=== PATIENT | female | born 1985 | race Caucasian/White ===

== ENCOUNTER 2019-12-23 08:37 | Day surgery (SDC) | payer OTHER ==
[~2019-12-23 08:37] MED LIST: DIPRIVAN 200 MG/20 ML IV ONE; Ketamine HCl 50 MG/ML ONE; Lactated Ringers 1,000 ML IV ONE; Lactated Ringers 1,000 ML IV SCH
--- NOTE | 2019-12-23 09:21 | HP ---
DATE OF SURGERY: 12/23/2019 HISTORY OF PRESENT ILLNESS: The patient is a 34 year-old with some intermittent epigastric and some right upper quadrant pain. She had a gallbladder ultrasound that did not show any stones, had a HIDA ejection fraction 95%. PAST MEDICAL HISTORY: Hypothyroidism, diabetes, anxiety. PAST SURGICAL HISTORY: Cyst removed from her back in the past. MEDICATIONS: Levothyroxine for hypothyroidism. Metformin for diabetes. Pantoprazole. Paxil for anxiety. Ranitidine. ALLERGIES: OMEPRAZOLE. SHE TOLERATES PANTOPRAZOLE. FAMILY HISTORY: Breast cancer. Asthma. SOCIAL HISTORY: Half pack per day smoker. Denies alcohol abuse. REVIEW OF SYSTEMS: Fourteen systems reviewed. No chest pain or palpitations. Other systems negative or noncontributory as above and per preadmission questionnaire. PHYSICAL EXAMINATION: GENERAL: No acute distress. HEENT: Sclerae nonicteric. NECK: No JVD. CHEST: Equal excursion, nonlabored breathing. CVS: Regular rate and rhythm. ABDOMEN: Soft. She is quite obese. Mild tenderness epigastrium and right upper quadrant. No peritoneal signs. EXTREMITIES: No significant edema. NEURO: Alert, oriented, moving extremities symmetrically. No gross motor deficits noted. IMPRESSION: Intermittent right upper quadrant and epigastric area pain of unclear etiology. She had an ultrasound showed no stones. HIDA ejection fraction is above the normal range at 95%. I feel she needs upper endoscopy to rule out gastritis, peptic ulcer disease, esophagitis or other etiology. If that is negative, she may need opinion from gastroenterology for possible endoscopic ultrasound or get their opinion on whether she has some sort of hyperkinetic gallbladder dysfunction causing some of her symptoms. She agrees to the plan, will proceed with outpatient EGD, possible biopsy as an outpatient.
[2019-12-23] MEDS ORDERED: DIPRIVAN 200 MG/20 ML IV ONE (10:09)
[2019-12-23 11:04] VITALS: O2SAT 97
[2019-12-23 11:08] VITALS: BP 142/88; PULSE 68
--- NOTE | 2019-12-23 14:04 | OP ---
SURGERY DATE/TIME: 12/23/2019 1005 PREOPERATIVE DIAGNOSES: 1) History of right upper quadrant epigastric pain. 2) Negative gallbladder ultrasound. HIDA scan ejection fraction 95%. POSTOPERATIVE DIAGNOSIS: Mild gastritis. PROCEDURES: 1) EGD with cold biopsy of small bowel to evaluate for celiac sprue. 2) Cold biopsy of antrum to evaluate for Helicobacter pylori. 3) Cold biopsy of distal esophagus to evaluate for short segment distal gastroesophagitis versus normal variation of gastroesophageal junction. 4) Random cold biopsy of mid esophagus to evaluate for eosinophilic esophagitis. SURGEON: Dr. Tanner Lomeli. ANESTHESIA: MAC. ESTIMATED BLOOD LOSS: Minimal. INDICATIONS: As noted above. Risks and benefits explained in detail and not limited to and consent obtained. DESCRIPTION OF PROCEDURE AND FINDINGS: The patient is taken to the endoscopy room. MAC anesthesia introduced. After official time out and no disagreement with planned procedure, video gastroscope easily passed down the esophagus through the patent pylorus to the junction of the second and third portion of the duodenum. Given her symptom complaints and negative gallbladder ultrasound, cold biopsy taken in the small bowel to evaluate for celiac sprue. Good hemostasis noted. Scope pulled back into the stomach. There was some mild gastritis. Cold biopsy taken to evaluate for Helicobacter pylori. There are no signs of any ulcers, polyps, masses or obstructing lesions. On retroflex the gastroesophageal junction snug against the scope. No signs of any significant hiatal hernia. The scope is straightened and pulled back to gastroesophageal junction about 40 cm. There was just slightly corrugated edge of the gastroesophageal junction whether this is just normal variation or early distal gastroesophagitis cold biopsy taken to evaluate for short segment distal gastroesophagitis. Good hemostasis noted. The scope pulled back in mid esophagus and some random cold biopsies taken to evaluate for eosinophilic esophagitis to rule out other cause of her symptoms. Otherwise no signs of any other mucosal lesions. Scope withdrawn. The patient tolerated the procedure well. There were no immediate complications. There was no family available to discuss the findings with out in the waiting area.
== END 2019-12-23 11:35 | disposition home or self-care (01) ==
LOC: SDC 08:37
PROVIDERS: ATTEND Surgery
DX: K29.70 Gastritis, unspecified, without bleeding (principal); E11.9 Type 2 diabetes mellitus without complications; E03.9 Hypothyroidism, unspecified; Z79.899 Other long term (current) drug therapy
CPT/HCPCS: 84703; 88305; J2704

== ENCOUNTER 2020-03-22 17:04 | Emergency (ER) | payer OTHER ==
[2020-03-22] MEDS ORDERED: TORAdol 30 mg Injection IM ONE (17:48)
[2020-03-22] MEDS ORDERED: CLEOCIN 150 MG CAPSULE PO ONE (17:49)
[2020-03-22 17:53] VITALS: PULSE 72
[2020-03-22] MEDS ORDERED: TORAdol 30 mg Injection ONE (17:55)
[2020-03-22] MEDS ORDERED: CLEOCIN 150 MG CAPSULE ONE (17:55)
--- NOTE | 2020-03-22 17:55 | ERPHSYRPT ---
- History of Present Illness Time Seen by Provider: 03/22/20 17:40 Source: patient Exam Limitations: no limitations Physician History: 34 years old female with history of anxiety, depression presented in the ER with chief complaint of left upper jaw/tooth ache/swelling sudden onset last night associated with moderate intensity sharp pain more with movements of the jaw, hot and cold intake and partial relief with taking [id number] pain medications. Denies any difficulty breathing. No earache. No fever or chills reported. Timing/Duration: abrupt onset, yesterday Severity: moderate ENT Location: mouth, dental Prearrival Treatment: no prearrival treatment Associated Symptoms: tooth pain, No fever, No chills, No hearing loss Allergies/Adverse Reactions: omeprazole Adverse Reaction (Intermediate, Verified 12/23/19 08:54) Muscle Aches "makes my body shake" Home Medications: Clomiphene Citrate [Serophene] 50 mg PO DAILY 12/13/19 [History] Famotidine [Pepcid] 40 mg PO HS 12/13/19 [History] Levothyroxine Sodium 100 Mcg [Synthroid 100 Mcg] 100 mcg PO DAILY 12/13/19 [History] Metformin HCl 500 mg [Glucophage 500 MG] 500 mg PO HS 12/13/19 [History] PARoxetine HCL [Paroxetine HCl] 10 mg PO DAILY 12/13/19 [History] Trazodone HCl 50 mg [Desyrel 50 mg] 50 mg PO HS 12/13/19 [History] - Review of Systems Constitutional: No Symptoms Eyes: No Symptoms Ears, Nose, & Throat: Mouth Swelling Respiratory: No Symptoms Cardiac: No Symptoms Abdominal/Gastrointestinal: No Symptoms Psychological: Anxiety, Depression Endocrine: No Symptoms Hematologic/Lymphatic: No Symptoms - Past Medical History Pertinent Past Medical History: Yes Neurological History: Other ENT History: No Pertinent History Cardiac History: No Pertinent History Respiratory History: Asthma Endocrine Medical History: No Pertinent History Musculoskeletal History: No Pertinent History GI Medical History: No Pertinent History History: No Pertinent History Psycho-Social History: Anxiety, Depression, Other Female Reproductive Disorders: No Pertinent History Other Medical History: personality disorder - Past Surgical History Past Surgical History: Yes Neuro Surgical History: No Pertinent History Cardiac: No Pertinent History Respiratory: No Pertinent History Gastrointestinal: No Pertinent History Genitourinary: No Pertinent History Musculoskeletal: Other Female Surgical History: No Pertinent History Other Surgical History: cyst removed from between shoulder blades - Social History Smoking Status: Current every day smoker Exposure to second hand smoke: No Drug Use: none - Physical Exam General Appearance: no apparent distress, alert Eye Exam: bilateral eye: normal inspection, PERRL, EOMI Ear Exam: bilateral ear: auricle normal, canal normal, TM normal Nasal Exam: normal inspection Throat Exam: normal, pharynx normal, dental tenderness (Gingiva around left upper premolar and molar. No fluctuation. 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 I believe patient is developing dental abscess but no fluctuation at present that needs to be drained , will treat with antibiotics. Recommended outpatient follow-up with dentist. Counseled pt/family regarding: need for follow-up - Departure Departure Disposition: Home Clinical Impression: Dental abscess Condition: Stable Critical Care Time: No Referrals: PRINCESS MAZARIEGOS MD [Primary Care Provider] - Follow Up with PCP/3 days FAM ORTIZ DDS [NON-STAFF PHY W/O PRIVILEGES] - (1-2 days for reevaluation. ) Instructions: Tooth Abscess (DC) Additional Instructions: Follow-up with dentist for reevaluation. Take Tylenol/ibuprofen as needed. Return to ER for any worsening. Prescriptions: Ibuprofen 600 mg PO Q6HPRN PRN 10 Days #20 tablet PRN Reason: Pain Clindamycin HCl 150 mg [Cleocin 150 mg Capsule] 2 cap PO QID #56 capsule
[2020-03-22 18:20] VITALS: BP 138/92; O2SAT 96
== END 2020-03-22 18:20 ==
LOC: ED 17:04
DX: K04.7 Periapical abscess without sinus (principal)
CPT/HCPCS: 96372; 99283; J1885; A9270-GY

== ENCOUNTER 2020-06-06 18:26 | Emergency (ER) | payer OTHER ==
[2020-06-06] MEDS ORDERED: Augmentin 875-125 Tablet PO ONE (18:46)
[2020-06-06] MEDS ORDERED: MOTRIN 600 MG PO ONE (18:46)
--- NOTE | 2020-06-06 18:50 | ERPHSYRPT ---
- History of Present Illness Time Seen by Provider: 06/06/20 18:40 Source: patient Exam Limitations: no limitations Patient Subjective Stated Complaint: pt reports pain under her right jaw, starting at her ear and radiating around to her chin-begining this morning. pt reports broken molars on the lower right side as well. pt states it hurts to move her neck. Triage Nursing Assessment: pt is aox3, pupils perrl, afebrile, resps easy and non labored, cap refill < 3 seconds, radial pulses strong and equal, pt skin pink warm dry. dental carries noted throughout. tenderness under the right ear and along jaw line, no redness or swelling noted at this time. Physician History: 34 years old female presented in the ER with chief complaint of right lower jaw pain and swelling of right upper neck nodes since yesterday after she broke a piece of her molar tooth. Moderate to severe intensity sharp pain aggravated with movements of jaw, swallowing and associated with hot and cold sensitivities. Has history of dental caries and work-up done in the past. Denies fever or chills. Timing/Duration: yesterday Severity: moderate ENT Location: facial, dental Prearrival Treatment: no prearrival treatment Associated Symptoms: facial pain/swelling, swollen glands, tooth pain, No fever, No chills Allergies/Adverse Reactions: omeprazole Adverse Reaction (Intermediate, Verified 03/22/20 17:54) Muscle Aches "makes my body shake" Home Medications: Clomiphene Citrate [Serophene] 50 mg PO DAILY 12/13/19 [History] Famotidine [Pepcid] 40 mg PO HS 12/13/19 [History] Levothyroxine Sodium 100 Mcg [Synthroid 100 Mcg] 100 mcg PO DAILY 12/13/19 [History] Metformin HCl 500 mg [Glucophage 500 MG] 500 mg PO HS 12/13/19 [History] PARoxetine HCL [Paroxetine HCl] 10 mg PO DAILY 12/13/19 [History] Trazodone HCl 50 mg [Desyrel 50 mg] 50 mg PO HS 12/13/19 [History] Hx Tetanus, Diphtheria Vaccination/Date Given: Yes Hx Influenza Vaccination/Date Given: No Hx Pneumococcal Vaccination/Date Given: No Immunizations Up to Date: Yes Travel Risk - International Travel Have you traveled outside of the country in past 3 weeks: No - Coronavirus Screening Are you exhibiting any of the following symptoms?: No Close contact with a COVID-19 positive Pt in past 14-21 Days: No - Review of Systems Constitutional: No Symptoms Eyes: No Symptoms Ears, Nose, & Throat: Mouth Swelling Respiratory: No Symptoms Cardiac: No Symptoms Abdominal/Gastrointestinal: No Symptoms Genitourinary Symptoms: No Symptoms Musculoskeletal: No Symptoms Skin: No Symptoms Neurological: No Symptoms Endocrine: No Symptoms Hematologic/Lymphatic: Adenopathy Immunological/Allergic: No Symptoms - Past Medical History Pertinent Past Medical History: Yes Neurological History: Other ENT History: No Pertinent History Cardiac History: No Pertinent History Respiratory History: Asthma Endocrine Medical History: No Pertinent History Musculoskeletal History: No Pertinent History GI Medical History: No Pertinent History History: No Pertinent History Psycho-Social History: Anxiety, Depression, Other Female Reproductive Disorders: No Pertinent History Other Medical History: personality disorder - Past Surgical History Past Surgical History: Yes Neuro Surgical History: No Pertinent History Cardiac: No Pertinent History Respiratory: No Pertinent History Gastrointestinal: No Pertinent History Genitourinary: No Pertinent History Musculoskeletal: Other Female Surgical History: No Pertinent History Other Surgical History: cyst removed from between shoulder blades - Social History Smoking Status: Current every day smoker Exposure to second hand smoke: No Drug Use: none Patient Lives Alone: No - Female History Hx Last Menstrual Period: 05/04/20 Hx Now: (unk) - Nursing Vital Signs Nursing Vital Signs: Initial Vital Signs Temperature 99.2 F 06/06/20 18:31 Pulse Rate 81 06/06/20 18:31 Respiratory Rate 20 06/06/20 18:31 Blood Pressure 166/104 06/06/20 18:31 O2 Sat by Pulse Oximetry 98 06/06/20 18:31 Pain Scale Pain Intensity 5 - Physical Exam General Appearance: no apparent distress, alert, anxiety Eye Exam: bilateral eye: normal inspection, PERRL, EOMI Ear Exam: bilateral ear: auricle normal Nasal Exam: normal inspection Throat Exam: normal, pharynx normal, dental tenderness (Right lower molar with fillings, periodontal disease), mandibular swelling Neck Exam: normal inspection, non-tender, supple, full range of motion, lymphadenopathy (R) Cardiovascular/Respiratory Exam: normal breath sounds, regular rate/rhythm Neurologic Exam: alert, oriented x 3 Skin Exam: normal color SpO2 Interpretation: normal SpO2: 98 O2 Delivery: Room Air Ordered Tests: Medication Summary Discontinued Medications Generic Name Dose Route Start Last Admin Trade Name Nancy PRN Reason Stop Dose Admin Amoxicillin/Clavulanate Potassium 875 mg 06/06/20 18:46 06/06/20 18:57 Augmentin 875-125 Tablet PO 06/06/20 18:47 875 mg STAT ONE Administration Amoxicillin/Clavulanate Potassium Confirm 06/06/20 18:55 Augmentin 875-125 Tablet Administered 06/06/20 18:56 Dose 875 mg .ROUTE .STK-MED ONE Ibuprofen 600 mg 06/06/20 18:46 06/06/20 18:56 Motrin 600 Mg PO 06/06/20 18:47 600 mg STAT ONE Administration Ibuprofen Confirm 06/06/20 18:55 Motrin 600 Mg Administered 06/06/20 18:56 Dose 600 mg .ROUTE .STK-MED ONE - Progress Progress: pain not gone completely Progress Note: 06/06/20 she is given ibuprofen and started on Augmentin, recommended outpatient dental follow-up. Counseled pt/family regarding: diagnosis, need for follow-up - Departure Departure Disposition: Home Clinical Impression: Dental infection Condition: Stable Critical Care Time: No Referrals: PRINCESS MAZARIEGOS MD [Primary Care Provider] - Follow Up with PCP/3 days FAM ORTIZ DDS [NON-STAFF PHY W/O PRIVILEGES] - (2 days for re evaluation) Instructions: Tooth Abscess (DC) Additional Instructions: Take Tylenol/ibuprofen as needed. Follow-up with your primary dentist/primary care for reevaluation. Return to ER for worsening. Prescriptions: Ibuprofen 600 mg PO Q6HPRN PRN 10 Days #20 tablet PRN Reason: Pain Amoxicillin/Potassium Clav [Augmentin 875-125 Tablet] 875 mg PO BID #14 tablet
[2020-06-06] MEDS ORDERED: Augmentin 875-125 Tablet ONE (18:55)
[2020-06-06] MEDS ORDERED: MOTRIN 600 MG ONE (18:55)
[2020-06-06 19:09] VITALS: BP 161/104; PULSE 65
[2020-06-06 23:38] VITALS: O2SAT 98
== END 2020-06-06 19:15 | disposition home or self-care (01) ==
LOC: ED 18:26
DX: K04.7 Periapical abscess without sinus (principal)
CPT/HCPCS: 99283; A9270-GY

== ENCOUNTER 2020-07-20 19:43 | Emergency (ER) | payer OTHER ==
--- NOTE | 2020-07-20 21:26 | ERPHSYRPT ---
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 Pain is now 0, but worse w movement. She is R handed and denies previous/other injuries. Occurred: yesterday Method of Injury: fell Quality: other (No pain at present) Severity of Pain-Max: mild Severity of Pain-Current: none Extremities Pain Location: wrist: right Modifying Factors: Improves With: movement Associated Symptoms: none Allergies/Adverse Reactions: omeprazole Adverse Reaction (Intermediate, Verified 07/20/20 20:18) Muscle Aches "makes my body shake" Home Medications: Clomiphene Citrate [Serophene] 50 mg PO DAILY 12/13/19 [History] Famotidine [Pepcid] 40 mg PO HS 12/13/19 [History] Levothyroxine Sodium 100 Mcg [Synthroid 100 Mcg] 100 mcg PO DAILY 12/13/19 [History] Metformin HCl 500 mg [Glucophage 500 MG] 500 mg PO HS 12/13/19 [History] PARoxetine HCL [Paroxetine HCl] 10 mg PO DAILY 12/13/19 [History] Trazodone HCl 50 mg [Desyrel 50 mg] 50 mg PO HS 12/13/19 [History] Hx Tetanus, Diphtheria Vaccination/Date Given: No (unknown) Hx Influenza Vaccination/Date Given: No Hx Pneumococcal Vaccination/Date Given: No Travel Risk - International Travel Have you traveled outside of the country in past 3 weeks: No - Coronavirus Screening Are you exhibiting any of the following symptoms?: No Close contact with a COVID-19 positive Pt in past 14-21 Days: No - Review of Systems Constitutional: No Symptoms Eyes: No Symptoms Ears, Nose, & Throat: No Symptoms Respiratory: No Symptoms Cardiac: No Symptoms Abdominal/Gastrointestinal: No Symptoms Skin: No Symptoms Neurological: No Symptoms Psychological: No Symptoms Endocrine: No Symptoms Hematologic/Lymphatic: No Symptoms Immunological/Allergic: No Symptoms - Past Medical History Pertinent Past Medical History: Yes Neurological History: No Pertinent History ENT History: No Pertinent History Cardiac History: No Pertinent History Respiratory History: Asthma Endocrine Medical History: Hypothyroidism Musculoskeletal History: Osteoarthritis GI Medical History: No Pertinent History History: No Pertinent History Psycho-Social History: Anxiety, Depression, Other Female Reproductive Disorders: No Pertinent History Other Medical History: Pt notes problems with thyroid, unsure if hypo- or hyper- - Past Surgical History Past Surgical History: Yes Neuro Surgical History: No Pertinent History Cardiac: No Pertinent History Respiratory: No Pertinent History Gastrointestinal: No Pertinent History Genitourinary: No Pertinent History Musculoskeletal: Other Female Surgical History: No Pertinent History Other Surgical History: cyst removed from between shoulder blades - Social History Smoking Status: Current every day smoker Exposure to second hand smoke: No Drug Use: none Patient Lives Alone: No Significant Family History: no pertinent family hx - Female History Hx Now: No - Nursing Vital Signs Nursing Vital Signs: Initial Vital Signs Temperature 98.2 F 07/20/20 20:19 Pulse Rate 84 07/20/20 20:19 Respiratory Rate 16 07/20/20 20:19 Blood Pressure 156/100 07/20/20 20:19 O2 Sat by Pulse Oximetry 98 07/20/20 20:19 Pain Scale Pain Intensity 4 - Physical Exam General Appearance: no apparent distress Eyes, Ears, Nose, Throat Exam: normal ENT inspection, TMs normal, pharynx no rmal, moist mucous membranes Neck Exam: normal inspection, non-tender, No Brudzinski, No Kernig's, No meningismus Cardiovascular/Respiratory Exam: normal breath sounds, regular rate/rhythm, heart sounds normal, no respiratory distress Abdominal Exam: non-tender, soft Back Exam: normal inspection, normal range of motion, No vertebral tenderness Shoulder Exam: normal inspection, non-tender, no evidence of injury, normal ROM Elbow/Forearm Exam: normal inspection, non-tender, no evidence of injury, normal ROM Wrist Exam: bone tenderness (TTP distal R radius/Minimal edema/No ecchymosis/Good radial pulse, distal sensation, and capillary return) DTR - Upper Extremity Exam: bicep (R): 2+, bicep (L): 2+ Neuro/Tendon Exam: normal sensation, normal motor functions, normal tendon functions, responds to pain Mental Status Exam: alert, oriented x 3, cooperative Skin Exam: normal color, warm, dry SpO2 Interpretation: normal SpO2: 98 O2 Delivery: Room Air - Radiology Exams Wrist X-ray Interpretation: Interpreted by me (R wrist neg) Ordered Tests: Active Orders 24 hr Category Date Time Status Mitch Bandage Application -[facility] STAT Care 07/20/20 21:27 Completed Cold Application STAT Care 07/20/20 20:03 Completed HAND (MINIMUM 3 VIEWS) Stat Exams 07/20/20 20:04 Taken - Progress Progress: unchanged Progress Note: 07/20/20 21:28 Mitch wrap R wrist per nurse/NVI Counseled pt/family regarding: rad results - Departure Departure Disposition: Home Clinical Impression: Right wrist sprain Condition: Stable Critical Care Time: No Referrals: PRINCESS MAZARIEGOS MD [Primary Care Provider] - Instructions: Wrist Sprain (DC) Additional Instructions: Mitch wrap for 3-4 days Motrin/tylenol for pain Follow up with family MD for continued pain
[2020-07-20 21:41] VITALS: BP 145/99; PULSE 76
[2020-07-20 23:43] VITALS: O2SAT 98
--- NOTE | 2020-07-21 08:59 | XRAY ---
Indication: Pain following fall. Comparison: None 3 view right hand obtained. No bony, articular, or soft tissue abnormalities.
== END 2020-07-20 21:42 | disposition home or self-care (01) ==
LOC: ED 19:43
DX: S63.501A Unspecified sprain of right wrist, initial encounter (principal); W18.30XA Fall on same level, unspecified, initial encounter; Y93.89 Activity, other specified; Y92.89 Other specified places as the place of occurrence of the external cause; Y99.0 Civilian activity done for income or pay
CPT/HCPCS: 73130; 99283

== ENCOUNTER 2020-10-28 15:14 | Emergency (ER) | payer OTHER ==
[2020-10-28 15:25] VITALS: BP 141/95
[2020-10-28] MEDS ORDERED: SILVADENE 50 GM TP ONE (15:32)
[2020-10-28] MEDS: SILVADENE 50 GM TP ONE (15:35)
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
[2020-10-28] MEDS ORDERED: Adacel Vial IM ONE (15:46)
[2020-10-28] MEDS: Adacel Vial IM ONE (15:49)
[2020-10-28 15:57] VITALS: PULSE 100; O2SAT 97
== END 2020-10-28 16:05 | disposition home or self-care (01) ==
LOC: ED 15:14
DX: T23.151A Burn of first degree of right palm, initial encounter (principal); M79.641 Pain in right hand
CPT/HCPCS: 90471; 90715; 99283; A9270-GY

== ENCOUNTER 2021-03-29 16:45 | Emergency (ER) | payer OTHER ==
[2021-03-29 17:00] VITALS: BP 148/91; PULSE 89; O2SAT 98
--- NOTE | 2021-03-29 18:12 | ERPHSYRPT ---
- History of Present Illness Time Seen by Provider: 03/29/21 17:12 Source: patient Exam Limitations: no limitations Patient Subjective Stated Complaint: Patient states she has had R elbow pain for a few weeks but it has become increasingly worse over the last couple of days. States "she can barely lift a cup of coffee". Triage Nursing Assessment: Patient presents to ED with R elbow pain rates pain 5/10 at this time. Does not have any swelling around injured elbow, skin pink warm and dry, cap refill normal. Physician History: 35 years old morbidly obese female presented in the ER with 2 weeks history of right elbow pain with movements and better with being still, mild to moderate intensity dull aching without any known trauma. 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 Denies any weakness in the hand or difficulty movements of wrist shoulder patient is trying to get and wants the test before doing x-rays. Denies any vaginal bleeding or discharge. No abdominal/pelvic cramping. No urinary symptoms. Occurred: days ago (14) Method of Injury: unknown Quality: aching, dullness Severity of Pain-Max: moderate Severity of Pain-Current: moderate Extremities Pain Location: elbow: right Modifying Factors: Worsens With: movement Allergies/Adverse Reactions: omeprazole Adverse Reaction (Intermediate, Verified 03/29/21 17:03) Muscle Aches "makes my body shake" Home Medications: Famotidine [Pepcid] 40 mg PO HS 12/13/19 [History] Levothyroxine Sodium 100 Mcg [Synthroid 100 Mcg] 100 mcg PO DAILY 12/13/19 [History] Metformin HCl 500 mg [Glucophage 500 MG] 1,000 mg PO BID 12/13/19 [History] PARoxetine HCL [Paroxetine HCl] 10 mg PO DAILY 12/13/19 [History] Hx Tetanus, Diphtheria Vaccination/Date Given: Yes Hx Influenza Vaccination/Date Given: Yes Hx Pneumococcal Vaccination/Date Given: No Immunizations Up to Date: No (unknown) Travel Risk - International Travel Have you traveled outside of the country in past 3 weeks: No - Coronavirus Screening Are you exhibiting any of the following symptoms?: No Close contact with a COVID-19 positive Pt in past 14-21 Days: No - Vaccine Status Have you recieved a Covid-19 vaccination: Yes 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 - Vaccination Dates Date of 2cond Vaccination (if applicable): 02/24/21 - Review of Systems Constitutional: No Symptoms Eyes: No Symptoms Ears, Nose, & Throat: No Symptoms Respiratory: No Symptoms Cardiac: No Symptoms Abdominal/Gastrointestinal: No Symptoms Genitourinary Symptoms: No Symptoms Musculoskeletal: Joint Pain Skin: No Symptoms Neurological: No Symptoms Endocrine: No Symptoms Hematologic/Lymphatic: No Symptoms Immunological/Allergic: No Symptoms - Past Medical History Pertinent Past Medical History: Yes Neurological History: No Pertinent History ENT History: No Pertinent History Cardiac History: No Pertinent History Respiratory History: Asthma Endocrine Medical History: Hypothyroidism Musculoskeletal History: Osteoarthritis GI Medical History: No Pertinent History History: No Pertinent History Psycho-Social History: Anxiety, Depression, Other Female Reproductive Disorders: No Pertinent History Other Medical History: Pt notes problems with thyroid, unsure if hypo- or hyper- - Past Surgical History Past Surgical History: Yes Neuro Surgical History: No Pertinent History Cardiac: No Pertinent History Respiratory: No Pertinent History Gastrointestinal: No Pertinent History Genitourinary: No Pertinent History Musculoskeletal: Other Female Surgical History: No Pertinent History Other Surgical History: cyst removed from between shoulder blades - Social History Smoking Status: Current every day smoker How long have you smoked: years Exposure to second hand smoke: Yes Drug Use: none Patient Lives Alone: No Significant Family History: no pertinent family hx - Female History Hx Last Menstrual Period: 02/23/21 Hx Now: No - Nursing Vital Signs Nursing Vital Signs: Initial Vital Signs Temperature 98.7 F 03/29/21 16:50 Pulse Rate 89 03/29/21 16:50 Blood Pressure 148/91 03/29/21 16:50 O2 Sat by Pulse Oximetry 98 03/29/21 16:50 Pain Scale Pain Intensity 5 - Physical Exam General Appearance: no apparent distress, alert Eyes, Ears, Nose, Throat Exam: normal ENT inspection Neck Exam: normal inspection, supple, full range of motion Cardiovascular/Respiratory Exam: normal breath sounds, regular rate/rhythm Abdominal Exam: non-tender, soft, no organomegaly Shoulder Exam: normal inspection, non-tender, no evidence of injury, normal ROM Elbow/Forearm Exam: normal inspection, non-tender, no evidence of injury, normal ROM Wrist Exam: normal inspection, non-tender, no evidence of injury, normal ROM Hand Exam: normal inspection, non-tender Neuro/Tendon Exam: normal sensation, normal motor functions, normal tendon functions Mental Status Exam: alert, oriented x 3, cooperative Skin Exam: normal color SpO2 Interpretation: normal SpO2: 98 O2 Delivery: Room Air Ordered Tests: Active Orders 24 hr Category Date Time Status CULTURE,URINE Stat Lab 03/29/21 17:57 Received HCG,QUALITATIVE URINE Stat Lab 03/29/21 17:36 Completed UA W/RFX UR CULTURE Stat Lab 03/29/21 17:57 Completed Lab/Rad Data: Laboratory Results 03/29/21 03/29/21 Range/Units 17:57 17:36 Urine Color NEIL (YELLOW) Urine Appearance CLOUDY (CLEAR) Urine pH 5.0 (5-6) Ur Specific [place] 1.028 (1.005-1.025) Urine Protein NEGATIVE (Negative) Urine Ketones NEGATIVE (NEGATIVE) Urine Blood NEGATIVE (0-5) Salvador/ul Urine Nitrite NEGATIVE (NEGATIVE) Urine Bilirubin NEGATIVE (NEGATIVE) Urine Urobilinogen NEGATIVE (0-1) mg/dL Ur Leukocyte Esterase MODERATE (NEGATIVE) Urine WBC (Auto) 11-15 (0-5) /HPF Urine RBC (Auto) 3-5 (0-2) /HPF U Hyaline Cast (Auto) 0-2 (0-2) /LPF U Epithel Cells (Auto) FEW (FEW) /HPF Urine Bacteria (Auto) RARE (NEGATIVE) /HPF Urine Mucus (Auto) MODERATE (NEGATIVE) /HPF Urine Culture Reflexed YES (NO) Urine Glucose NEGATIVE (NEGATIVE) mg/dL Urine HCG, Qual POSITIVE (Negative) - Progress Progress: unchanged Progress Note: 03/29/21 18:10 She is offered pain medication which she refused as she is not in any pain currently. Obtained urine test which is positive and last LMP was little over a month ago. Does not have any pelvic cramping or vaginal bleeding/discharge. She refused to have x-rays even with shield placement. I think it is reasonable she is advised to take Tylenol as needed and have elbow brace [id number]. Went over her medications list and recommended stopping medications which are contraindicated in . We will start her on vitamins. Patient wants to follow-up with Dr. Suarez as an OB patient. 03/29/21 18:41 Does have UTI we will treat with Keflex. Counseled pt/family regarding: diagnosis, need for follow-up - Departure Departure Disposition: Home Clinical Impression: Elbow pain, right Qualifiers: Weeks of gestation: less than 8 weeks Qualified Code(s): Z3A.01 - Less than 8 weeks gestation of UTI in Qualifiers: Trimester: first trimester Qualified Code(s): O23.41 - Unspecified infection of urinary tract in , first trimester Condition: Stable Critical Care Time: No Referrals: MEEK THOMPSON [Primary Care Provider] - GOMEZ SUAREZ [ACTIVE STAFF] - (Call tomorrow for appointment) Instructions: Medications and Additional Instructions: Keep yourself well-hydrated. Take Tylenol as needed for pain. Continue with vitamins. Follow-up with your OB for reevaluation in the next few days. Use [id number] elbow brace. Return to ER for worsening pain or if have any abdominal/pelvic pain/vaginal bleeding discharge etc. Prescriptions: Cephalexin Mh 500 mg [Keflex 500 mg] 500 mg PO TID #21 capsule Vits W-Ca,Fe,FA(<1Mg) [] 1 each PO DAILY 60 Days #60 tablet
[2021-03-29 18:23] LABS: Appearance CLOUDY (CLEAR); Bacteria RARE /HPF (NEGATIVE); Bilirubin NEGATIVE (NEGATIVE); Blood NEGATIVE Ery/ul (0-5); Epithelial Cells FEW /HPF (FEW); Glucose NEGATIVE (NEGATIVE); Hyaline Casts 0-2 /LPF (0-2); Ketones NEGATIVE (NEGATIVE); Leukocyte Esterase MODERATE (NEGATIVE); Mucus MODERATE /HPF (NEGATIVE); Nitrite NEGATIVE (NEGATIVE); Protein,Urine Dip NEGATIVE (Negative); Specific Gravity 1.028 (1.005-1.025); Urobilinogen NEGATIVE mg/dL (0-1)
== END 2021-03-29 18:30 | disposition home or self-care (01) ==
LOC: ED 16:45
DX: O23.41 Unspecified infection of urinary tract in pregnancy, first trimester (principal); Z3A.01 Less than 8 weeks gestation of pregnancy
CPT/HCPCS: 81001; 84703; 87086; 99283

== ENCOUNTER 2021-09-27 19:54 | Observation (INO) | payer OTHER ==
[2021-09-27 20:42] VITALS: BP 134/68; PULSE 94
[2021-09-27 20:54] LABS: Appearance SLIGHTLY CLOUDY (CLEAR); Bacteria RARE /HPF (NEGATIVE); Bilirubin NEGATIVE (NEGATIVE); Blood NEGATIVE Ery/ul (0-5); Epithelial Cells FEW /HPF (FEW); Glucose NEGATIVE (NEGATIVE); Ketones NEGATIVE (NEGATIVE); Leukocyte Esterase MODERATE (NEGATIVE); Mucus SLIGHT /HPF (NEGATIVE); Nitrite NEGATIVE (NEGATIVE); Protein,Urine Dip NEGATIVE (Negative); Specific Gravity 1.011 (1.005-1.025); Urobilinogen NEGATIVE mg/dL (0-1)
[2021-09-27 20:57] LABS: Amphetamine,Urine NEGATIVE (NEGATIVE); Barbiturate,Urine NEGATIVE (NEGATIVE); Benzodiazepine,Urine NEGATIVE (NEGATIVE); Cocaine,Urine NEGATIVE (NEGATIVE); Methadone,Urine NEGATIVE (NEGATIVE); Opiate,Urine NEGATIVE (NEGATIVE); PCP,Urine NEGATIVE (NEGATIVE); THC,Urine NEGATIVE (NEGATIVE)
== END 2021-09-27 21:20 | disposition home or self-care (01) ==
LOC: OB 19:54
PROVIDERS: ADMIT Family Medicine; ATTEND Family Medicine
DX: Z34.83 Encounter for supervision of other normal pregnancy, third trimester (principal); Z3A.31 31 weeks gestation of pregnancy
CPT/HCPCS: 80307; 81001

== ENCOUNTER 2022-06-03 12:28 | Emergency (ER) | payer OTHER ==
--- NOTE | 2022-06-03 12:37 | ERPHSYRPT ---
- History of Present Illness Time Seen by Provider: 06/03/22 12:37 Source: patient, EMS Exam Limitations: no limitations Physician History: This is a morbidly obese 36-year-old white female who is a patient of Dr. Thompson and a daily smoker of cigarettes and presents to the emergency department via EMS because of "unresponsiveness". Patient had a very stressful morning with CPS at the home. Patient has hypothyroidism. She is only taking medication for asthma and seasonal allergies. Patient does have a history anxiety and depression. Patient denies chest pain and denies shortness of breath. Because the patient was not responsive at home, CPR was started. However, when EMS service arrived, the patient was breathing on her own and had a pulse and slowly began responding to sternal rub. By the time the patient arrived to the emergency department, patient is alert oriented and conversing. She denies chest pain. She denies shortness of breath. She has no abdominal pain. Per patient report, she has had several episodes of this type of thing since 2017. She has never obtained a diagnosis for these episodes. Timing/Duration: today Severity: moderate Associated Symptoms: denies symptoms Allergies/Adverse Reactions: omeprazole Adverse Reaction (Intermediate, Verified 06/03/22 13:06) Muscle Aches "makes my body shake" Home Medications: Fexofenadine HCl 180 mg PO DAILY 06/03/22 [History] Hx Tetanus, Diphtheria Vaccination/Date Given: Yes Hx Influenza Vaccination/Date Given: Yes Hx Pneumococcal Vaccination/Date Given: No Travel Risk - International Travel Have you traveled outside of the country in past 3 weeks: No - Coronavirus Screening Are you exhibiting any of the following symptoms?: No Close contact with a COVID-19 positive Pt in past 14-21 Days: No - Vaccine Status Have you recieved a Covid-19 vaccination: Yes Personal Injury Legal Assistant: Moderna - Vaccination Dates Date of 2cond Vaccination (if applicable): 02/11/21 Comment: moderna, and booster 08/13/21 Flu 07/2021 - Review of Systems Constitutional: No Symptoms Eyes: No Symptoms Ears, Nose, & Throat: No Symptoms Respiratory: No Symptoms Cardiac: No Symptoms Abdominal/Gastrointestinal: No Symptoms Genitourinary Symptoms: No Symptoms Musculoskeletal: No Symptoms Skin: No Symptoms Neurological: No Symptoms Psychological: No Symptoms Endocrine: No Symptoms Hematologic/Lymphatic: No Symptoms Immunological/Allergic: No Symptoms All Other Systems: Reviewed and Negative - Past Medical History Pertinent Past Medical History: Yes Neurological History: No Pertinent History ENT History: No Pertinent History Cardiac History: No Pertinent History Respiratory History: Asthma Endocrine Medical History: Hypothyroidism Musculoskeletal History: Osteoarthritis GI Medical History: No Pertinent History History: No Pertinent History Psycho-Social History: Anxiety, Depression, Other Female Reproductive Disorders: No Pertinent History Other Medical History: Pt notes problems with thyroid, unsure if hypo- or hyper- - Past Surgical History Past Surgical History: Yes Neuro Surgical History: No Pertinent History Cardiac: No Pertinent History Respiratory: No Pertinent History Gastrointestinal: No Pertinent History Genitourinary: No Pertinent History Musculoskeletal: Other Female Surgical History: No Pertinent History Other Surgical History: cyst removed from between shoulder blades - Social History Smoking Status: Current every day smoker How long have you smoked: years Exposure to second hand smoke: Yes Drug Use: none Patient Lives Alone: No Significant Family History: no pertinent family hx - Nursing Vital Signs Nursing Vital Signs: Initial Vital Signs Temperature 99.0 F 06/03/22 12:31 Pulse Rate 80 06/03/22 12:31 Respiratory Rate 14 06/03/22 12:31 Blood Pressure 147/89 06/03/22 12:31 O2 Sat by Pulse Oximetry 97 06/03/22 12:31 Pain Scale Pain Intensity 0 - Physical Exam General Appearance: no apparent distress, alert, anxiety, obese Eye Exam: PERRL/EOMI, eyes nml inspection Ears, Nose, Throat Exam: normal ENT inspection, moist mucous membranes Neck Exam: normal inspection, non-tender, supple, full range of motion Respiratory Exam: normal breath sounds, lungs clear, airway intact, No chest tenderness, No respiratory distress Cardiovascular Exam: regular rate/rhythm, normal heart sounds, normal peripheral pulses Gastrointestinal/Abdomen Exam: soft, normal bowel sounds, No tenderness Pelvic Exam: not done Rectal Exam: not done Back Exam: normal inspection, normal range of motion, No CVA tenderness, No vertebral tenderness Extremity Exam: normal inspection, normal range of motion, pelvis stable Neurologic Exam: alert, oriented x 3, cooperative, breastfeeding peer counselor II-XII nml as tested, normal mood/affect Skin Exam: normal color, warm, dry Lymphatic Exam: No adenopathy SpO2 Interpretation: normal O2 Delivery: Room Air - Course Nursing assessment & vital signs reviewed: Yes EKG Interpreted by Me: RATE (80), Sinus Rhythm, NORMAL AXIS, NORMAL INTERVALS, NORMAL QRS, NORMAL ST-T, Other (No acute ischemic changes on today's EKG) Ordered Tests: Active Orders 24 hr Category Date Time Status EKG-ER Only STAT Care 06/03/22 12:59 Active IV Insertion STAT Care 06/03/22 12:59 Active Pulse Oximetry (ED) STAT Care 06/03/22 12:59 Active HEAD WITHOUT CONTRAST [CT] Stat Exams 06/03/22 13:30 Completed CBC W DIFF Stat Lab 06/03/22 13:15 Completed CMP Stat Lab 06/03/22 13:15 Completed CULTURE,URINE Stat Lab 06/03/22 13:15 Received D-DIMER QUANTITATIVE Stat Lab 06/03/22 13:15 Completed HCG,QUALITATIVE URINE Stat Lab 06/03/22 13:15 Completed T4 (Thyroxine) Stat Lab 06/03/22 13:15 Completed TROPONIN Q4H Lab 06/03/22 13:15 Completed TROPONIN Q4H Lab 06/03/22 17:00 Ordered TROPONIN Q4H Lab 06/03/22 21:00 Ordered TSH, 3RD Generation Stat Lab 06/03/22 13:15 Completed UA W/RFX CULTURE Stat Lab 06/03/22 13:15 Completed Urine Triage Profile Stat Lab 06/03/22 13:15 Completed Medication Summary Generic Name Dose Route Start Last Admin Trade Name Freq PRN Reason Stop Dose Admin Ceftriaxone Sodium/Dextrose 1 g in 50 mls @ 100 mls/hr 06/03/22 14:30 Rocephin 1 Gm-D5w 50 Ml Bag IV 06/03/22 14:59 STAT STA Discontinued Medications Generic Name Dose Route Start Last Admin Trade Name Freq PRN Reason Stop Dose Admin Sodium Chloride 1,000 mls @ 999 mls/hr 06/03/22 12:59 06/03/22 13:40 Sodium Chloride 0.9% 1000 Ml IV 06/03/22 13:59 999 mls/hr .Q1H1M STA Administration Sodium Chloride Confirm 06/03/22 13:31 Sodium Chloride 0.9% 1000 Ml Administered 06/03/22 13:32 Dose 1,000 mls @ ud .ROUTE .STK-MED ONE Lab/Rad Data: Laboratory Result Diagrams 06/03/22 13:15 06/03/22 13:15 Laboratory Results 06/03/22 06/03/22 06/03/22 Range/Units 13:15 13:15 13:15 WBC (4.0-10.5) x10^3/uL RBC (4.1-5.4) x10^6/uL Hgb (12.0-16.0) g/dL Hct (35-47) % MCV (78-100) fL MCH (26-32) pg MCHC (32-36) g/dL RDW (11.5-14.0) % Plt Count (150-450) x10^3/uL MPV (7.5-11.0) fL Gran % (36.0-66.0) % Immature Gran % (Auto) (0.00-0.4) % Nucleat RBC Rel Count (0.00-0.1) % Eos # (Auto) (0-0.5) x10^3/uL Immature Gran # (Auto) (0.00-0.03) x10^3u/L Absolute Lymphs (auto) (1.0-4.6) x10^3/uL Absolute Monos (auto) (0.0-1.3) x10^3/uL Absolute Nucleated RBC (0.00-0.01) x10^3u/L Lymphocytes % (24.0-44.0) % Monocytes % (0.0-12.0) % Eosinophils % (0.00-5.0) % Basophils % (0.0-0.4) % Absolute Granulocytes (1.4-6.9) x10^3/uL Basophils # (0-0.4) x10^3/uL D-Dimer (0.0-0.50) mg/L Sodium (137-145) mmol/L Potassium (3.5-5.1) mmol/L Chloride (98-107) mmol/L Carbon Dioxide (22-30) mmol/L Anion Gap (5-15) MEQ/L BUN (7-17) mg/dL Creatinine (0.52-1.04) mg/dL Estimated GFR ML/MIN Glucose (74-106) mg/dL Calcium (8.4-10.2) mg/dL Total Bilirubin (0.2-1.3) mg/dL AST (14-36) U/L ALT (0-35) U/L Alkaline Phosphatase (38-126) U/L Troponin I (0.000-0.034) ng/mL Serum Total Protein (6.3-8.2) g/dL Albumin (3.5-5.0) g/dL Thyroxine (T4) (5.53-10.96) ug/dL TSH 3rd Generation (0.47-4.68) mIU/L Urinalys Dipstick Clnc MAIN LAB Urine Color YELLOW (YELLOW) Urine Appearance CLEAR (CLEAR) Urine pH 6.0 (5-6) Ur Specific [place] 1.025 (1.005-1.025) POC Urine Protein Conf NEGATIVE (Negative) Urine Ketones NEGATIVE (NEGATIVE) Urine Nitrite NEGATIVE (NEGATIVE) Urine Bilirubin NEGATIVE (NEGATIVE) Urine Urobilinogen 0.2 (0-1) mg/dL Urine Leukocytes TRACE (NEGATIVE) Urine WBC (Auto) 3-5 (0-5) /HPF Urine RBC (Auto) 11-15 (0-2) /HPF U Epithel Cells (Auto) RARE (FEW) /HPF Urine Bacteria (Auto) RARE (NEGATIVE) /HPF Urine RBC LARGE (0-5) [place]/ul Urine Mucus (Auto) SLIGHT (NEGATIVE) /HPF Ur Culture Indicated? YES Urine Glucose NEGATIVE (NEGATIVE) mg/dL Urine HCG, Qual NEGATIVE (Negative) Urine Opiates Level (NEGATIVE) Ur Methadone (NEGATIVE) Urine Barbiturates (NEGATIVE) Ur Phencyclidine (PCP) (NEGATIVE) Urine Amphetamine (NEGATIVE) U Benzodiazepine Level (NEGATIVE) Urine Cocaine (NEGATIVE) Urine Marijuana (THC) (NEGATIVE) Influenza Type A Ag NEGATIVE (NEGATIVE) Influenza Type B Ag NEGATIVE (NEGATIVE) RSV (PCR) NEGATIVE (Negative) SARS-CoV-2 (PCR) NEGATIVE (NEGATIVE) 06/03/22 06/03/22 06/03/22 Range/Units 13:15 13:15 13:15 WBC (4.0-10.5) x10^3/uL RBC (4.1-5.4) x10^6/uL Hgb (12.0-16.0) g/dL Hct (35-47) % MCV (78-100) fL MCH (26-32) pg MCHC (32-36) g/dL RDW (11.5-14.0) % Plt Count (150-450) x10^3/uL MPV (7.5-11.0) fL Gran % (36.0-66.0) % Immature Gran % (Auto) (0.00-0.4) % Nucleat RBC Rel Count (0.00-0.1) % Eos # (Auto) (0-0.5) x10^3/uL Immature Gran # (Auto) (0.00-0.03) x10^3u/L Absolute Lymphs (auto) (1.0-4.6) x10^3/uL Absolute Monos (auto) (0.0-1.3) x10^3/uL Absolute Nucleated RBC (0.00-0.01) x10^3u/L Lymphocytes % (24.0-44.0) % Monocytes % (0.0-12.0) % Eosinophils % (0.00-5.0) % Basophils % (0.0-0.4) % Absolute Granulocytes (1.4-6.9) x10^3/uL Basophils # (0-0.4) x10^3/uL D-Dimer 0.35 (0.0-0.50) mg/L Sodium (137-145) mmol/L Potassium (3.5-5.1) mmol/L Chloride (98-107) mmol/L Carbon Dioxide (22-30) mmol/L Anion Gap (5-15) MEQ/L BUN (7-17) mg/dL Creatinine (0.52-1.04) mg/dL Estimated GFR ML/MIN Glucose (74-106) mg/dL Calcium (8.4-10.2) mg/dL Total Bilirubin (0.2-1.3) mg/dL AST (14-36) U/L ALT (0-35) U/L Alkaline Phosphatase (38-126) U/L Troponin I < 0.012 (0.000-0.034) ng/mL Serum Total Protein (6.3-8.2) g/dL Albumin (3.5-5.0) g/dL Thyroxine (T4) (5.53-10.96) ug/dL TSH 3rd Generation (0.47-4.68) mIU/L Urinalys Dipstick Clnc Urine Color (YELLOW) Urine Appearance (CLEAR) Urine pH (5-6) Ur Specific [place] (1.005-1.025) POC Urine Protein Conf (Negative) Urine Ketones (NEGATIVE) Urine Nitrite (NEGATIVE) Urine Bilirubin (NEGATIVE) Urine Urobilinogen (0-1) mg/dL Urine Leukocytes (NEGATIVE) Urine WBC (Auto) (0-5) /HPF Urine RBC (Auto) (0-2) /HPF U Epithel Cells (Auto) (FEW) /HPF Urine Bacteria (Auto) (NEGATIVE) /HPF Urine RBC (0-5) [place]/ul Urine Mucus (Auto) (NEGATIVE) /HPF Ur Culture Indicated? Urine Glucose (NEGATIVE) mg/dL Urine HCG, Qual (Negative) Urine Opiates Level NEGATIVE (NEGATIVE) Ur Methadone NEGATIVE (NEGATIVE) Urine Barbiturates NEGATIVE (NEGATIVE) Ur Phencyclidine (PCP) NEGATIVE (NEGATIVE) Urine Amphetamine NEGATIVE (NEGATIVE) U Benzodiazepine Level NEGATIVE (NEGATIVE) Urine Cocaine NEGATIVE (NEGATIVE) Urine Marijuana (THC) NEGATIVE (NEGATIVE) Influenza Type A Ag (NEGATIVE) Influenza Type B Ag (NEGATIVE) RSV (PCR) (Negative) SARS-CoV-2 (PCR) (NEGATIVE) 06/03/22 06/03/22 Range/Units 13:15 13:15 WBC 8.5 (4.0-10.5) x10^3/uL RBC 4.38 (4.1-5.4) x10^6/uL Hgb 12.6 (12.0-16.0) g/dL Hct 38.6 (35-47) % MCV 88.1 (78-100) fL MCH 28.8 (26-32) pg MCHC 32.6 (32-36) g/dL RDW 14.9 H (11.5-14.0) % Plt Count 292 (150-450) x10^3/uL MPV 10.4 (7.5-11.0) fL Gran % 59.1 (36.0-66.0) % Immature Gran % (Auto) 0.5 H (0.00-0.4) % Nucleat RBC Rel Count 0.0 (0.00-0.1) % Eos # (Auto) 0.53 H (0-0.5) x10^3/uL Immature Gran # (Auto) 0.04 H (0.00-0.03) x10^3u/L Absolute Lymphs (auto) 2.32 (1.0-4.6) x10^3/uL Absolute Monos (auto) 0.52 (0.0-1.3) x10^3/uL Absolute Nucleated RBC 0.00 (0.00-0.01) x10^3u/L Lymphocytes % 27.4 (24.0-44.0) % Monocytes % 6.1 (0.0-12.0) % Eosinophils % 6.3 H (0.00-5.0) % Basophils % 0.6 (0.0-0.4) % Absolute Granulocytes 5.01 (1.4-6.9) x10^3/uL Basophils # 0.05 (0-0.4) x10^3/uL D-Dimer (0.0-0.50) mg/L Sodium 139 (137-145) mmol/L Potassium 4.0 (3.5-5.1) mmol/L Chloride 109 H (98-107) mmol/L Carbon Dioxide 24 (22-30) mmol/L Anion Gap 9.8 (5-15) MEQ/L BUN 9 (7-17) mg/dL Creatinine 0.72 (0.52-1.04) mg/dL Estimated GFR > 60.0 ML/MIN Glucose 99 (74-106) mg/dL Calcium 8.7 (8.4-10.2) mg/dL Total Bilirubin 0.40 (0.2-1.3) mg/dL AST 17 (14-36) U/L ALT 15 (0-35) U/L Alkaline Phosphatase 94 (38-126) U/L Troponin I (0.000-0.034) ng/mL Serum Total Protein 6.3 (6.3-8.2) g/dL Albumin 3.6 (3.5-5.0) g/dL Thyroxine (T4) 8.37 (5.53-10.96) ug/dL TSH 3rd Generation 6.620 H (0.47-4.68) mIU/L Urinalys Dipstick Clnc Urine Color (YELLOW) Urine Appearance (CLEAR) Urine pH (5-6) Ur Specific [place] (1.005-1.025) POC Urine Protein Conf (Negative) Urine Ketones (NEGATIVE) Urine Nitrite (NEGATIVE) Urine Bilirubin (NEGATIVE) Urine Urobilinogen (0-1) mg/dL Urine Leukocytes (NEGATIVE) Urine WBC (Auto) (0-5) /HPF Urine RBC (Auto) (0-2) /HPF U Epithel Cells (Auto) (FEW) /HPF Urine Bacteria (Auto) (NEGATIVE) /HPF Urine RBC (0-5) [place]/ul Urine Mucus (Auto) (NEGATIVE) /HPF Ur Culture Indicated? Urine Glucose (NEGATIVE) mg/dL Urine HCG, Qual (Negative) Urine Opiates Level (NEGATIVE) Ur Methadone (NEGATIVE) Urine Barbiturates (NEGATIVE) Ur Phencyclidine (PCP) (NEGATIVE) Urine Amphetamine (NEGATIVE) U Benzodiazepine Level (NEGATIVE) Urine Cocaine (NEGATIVE) Urine Marijuana (THC) (NEGATIVE) Influenza Type A Ag (NEGATIVE) Influenza Type B Ag (NEGATIVE) RSV (PCR) (Negative) SARS-CoV-2 (PCR) (NEGATIVE) - Progress Progress: improved, re-examined Progress Note: 06/03/22 14:[address] scan of the head without contrast. Mild left maxillary sinus disease Counseled pt/family regarding: lab results, diagnosis, need for follow-up, rad results - Departure Departure Disposition: Home Clinical Impression: Syncope, UTI (urinary tract infection), Hypothyroidism Condition: Stable Critical Care Time: No Referrals: MEEK THOMPSON MD [Primary Care Provider] - Follow up/PCP as directed Additional Instructions: Drink plenty of fluids. Take your antibiotics as prescribed. Follow-up with your primary care provider for further evaluation and management. Prescriptions: Ciprofloxacin [Cipro 500 MG] 500 mg PO BID #14 tablet
[2022-06-03] MEDS ORDERED: Sodium Chloride 0.9% 1000 ML 1,000 ML IV STA (12:59)
[2022-06-03 13:22] LABS: Absolute Neutrophil Ct (ANC) 5.01 x10^3/uL (1.4-6.9); Basophil (Absolute #) 0.05 x10^3/uL (0-0.4); Eosinophil % 6.3 % (0.00-5.0); Eosinophil (Absolute #) 0.53 x10^3/uL (0-0.5); Hematocrit 38.6 % (35-47); Hemoglobin 12.6 g/dL (12.0-16.0); Lymphocyte (Absolute #) 2.32 x10^3/uL (1.0-4.6); Lymphocytes % 27.4 % (24.0-44.0); Mean Cell Volume 88.1 fL (78-100); Mean Corpuscular Hemoglobin 28.8 pg (26-32); Mean Corpuscular Hgb Concent. 32.6 g/dL (32-36); Mean Platelet Volume 10.4 fL (7.5-11.0); Monocyte (Absolute #) 0.52 x10^3/uL (0.0-1.3); Monocytes % 6.1 % (0.0-12.0); Neutrophil % 59.1 % (36.0-66.0); Platelet Count 292 x10^3/uL (150-450); Red Blood Count 4.38 x10^6/uL (4.1-5.4); Red Cell Distribution Width 14.9 % (11.5-14.0); White Blood Count 8.5 x10^3/uL (4.0-10.5)
[2022-06-03] MEDS ORDERED: Sodium Chloride 0.9% 1000 ML 1,000 ML ONE (13:31)
[2022-06-03 13:37] LABS: Appearance CLEAR (CLEAR); Bilirubin NEGATIVE (NEGATIVE); Dipstick done @ ? MAIN LAB; Glucose NEGATIVE (NEGATIVE); Ketones NEGATIVE (NEGATIVE); Nitrite NEGATIVE (NEGATIVE); Protein,Urine Dip NEGATIVE (Negative); RBC LARGE Ery/ul (0-5); Specific Gravity 1.025 (1.005-1.025); Urobilinogen 0.2 mg/dL (0-1)
[2022-06-03 13:38] LABS: Bacteria RARE /HPF (NEGATIVE); Epithelial Cells RARE /HPF (FEW); Mucus SLIGHT /HPF (NEGATIVE)
[2022-06-03 13:39] LABS: Urine Cultured Indicated? YES
--- NOTE | 2022-06-03 13:42 | XRAY ---
Indication: Found unresponsive. History of syncope. Multiple contiguous axial images obtained through the head without contrast. Comparison: None Normal appearing brain parenchyma, ventricles, and bony calvarium. Mild mucosal thickening posterior left maxillary sinus. Remaining paranasal sinuses and mastoid air cells are clear. Impression: Normal CT head without contrast exam. Incidental left maxillary sinus disease.
[2022-06-03 13:53] LABS: Amphetamine,Urine NEGATIVE (NEGATIVE); Barbiturate,Urine NEGATIVE (NEGATIVE); Benzodiazepine,Urine NEGATIVE (NEGATIVE); Cocaine,Urine NEGATIVE (NEGATIVE); Methadone,Urine NEGATIVE (NEGATIVE); Opiate,Urine NEGATIVE (NEGATIVE); PCP,Urine NEGATIVE (NEGATIVE); THC,Urine NEGATIVE (NEGATIVE)
[2022-06-03 14:00] LABS: INFLUENZA A NEGATIVE (NEGATIVE); INFLUENZA B NEGATIVE (NEGATIVE); RESPIRATORY SYNCTIAL VIRUS NEGATIVE (Negative); SARS-CoV-2 Xpert Express NEGATIVE (NEGATIVE)
[2022-06-03 14:12] LABS: ALBUMIN 3.6 g/dL (3.5-5.0); ALKALINE PHOSPHATASE 94 U/L (38-126); ANION GAP 9.8 MEQ/L (5-15); BLOOD UREA NITROGEN 9 mg/dL (7-17); CHLORIDE 109 mmol/L (98-107); Calcium 8.7 mg/dL (8.4-10.2); Carbon Dioxide 24 mmol/L (22-30); Creatinine 1 0.72 mg/dL (0.52-1.04); EST GLOMERULAR FILTRATION RATE > 60.0 ML/MIN; Glucose 99 mg/dL (74-106); SGOT/AST 17 U/L (14-36); SGPT/ALT 15 U/L (0-35); SODIUM 139 mmol/L (137-145); T4 (Thyroxine) 8.37 ug/dL (5.53-10.96); Total Protein 6.3 g/dL (6.3-8.2)
[2022-06-03] MEDS ORDERED: ROCEPHIN 1 Gm-D5w 50 ml Bag** 1 G/50 ML IVPB IV STA (14:30)
[2022-06-03 14:31] VITALS: BP 132/71; O2SAT 98
[2022-06-03] MEDS ORDERED: ROCEPHIN 1 Gm-D5w 50 ml Bag** 1 G/50 ML IVPB IV ONE (14:34)
[2022-06-03 15:03] VITALS: PULSE 71
== END 2022-06-03 15:29 | disposition home or self-care (01) ==
LOC: ED 12:28
DX: R55 Syncope and collapse (principal); N39.0 Urinary tract infection, site not specified; E03.9 Hypothyroidism, unspecified; Z72.0 Tobacco use; Z79.899 Other long term (current) drug therapy
CPT/HCPCS: 0241U; 36000; 36415; 70450; 80053; 80307; 81015; 81025; 84436; 84443; 84484; 85025; 85379; 87086; 93005; 94760; 96374; 99284; J0696

== ENCOUNTER 2023-03-29 08:14 | Emergency (ER) | payer OTHER ==
[2023-03-29] MEDS ORDERED: Sodium Chloride 0.9% 1000 ML 1,000 ML IV STA (08:46)
[2023-03-29] MEDS ORDERED: Zofran 4 MG/2 ML VIAL IV ONE (08:46)
[2023-03-29] MEDS ORDERED: Hydromorphone 1 mg/ml Injection IV ONE (08:46)
[2023-03-29] MEDS ORDERED: TORAdol 30 mg Injection IV ONE (08:46)
[2023-03-29] MEDS ORDERED: Hydromorphone 1 mg/ml Injection ONE (08:51)
[2023-03-29] MEDS ORDERED: Sodium Chloride 0.9% 1000 ML 1,000 ML ONE (08:51)
[2023-03-29] MEDS ORDERED: Zofran 4 MG/2 ML VIAL ONE (08:51)
[2023-03-29 09:01] LABS: Absolute Neutrophil Ct (ANC) 7.76 x10^3/uL (1.4-6.9); BASOPHIL % 0.2 % (0.0-0.4); Basophil (Absolute #) 0.03 x10^3/uL (0-0.4); Eosinophil % 3.5 % (0.00-5.0); Eosinophil (Absolute #) 0.43 x10^3/uL (0-0.5); Hematocrit 41.8 % (35-47); Hemoglobin 13.2 g/dL (12.0-16.0); IMMATURE GRAN # 0.06 x10^3u/L (0.00-0.03); IMMATURE GRAN % 0.5 % (0.00-0.4); Lymphocyte (Absolute #) 3.25 x10^3/uL (1.0-4.6); Lymphocytes % 26.3 % (24.0-44.0); Mean Cell Volume 89.3 fL (78-100); Mean Corpuscular Hemoglobin 28.2 pg (26-32); Mean Corpuscular Hgb Concent. 31.6 g/dL (32-36); Mean Platelet Volume 9.8 fL (7.5-11.0); Monocyte (Absolute #) 0.85 x10^3/uL (0.0-1.3); Monocytes % 6.9 % (0.0-12.0); Neutrophil % 62.6 % (36.0-66.0); Platelet Count 312 x10^3/uL (150-450); Red Blood Count 4.68 x10^6/uL (4.1-5.4); Red Cell Distribution Width 14.4 % (11.5-14.0); White Blood Count 12.4 x10^3/uL (4.0-10.5)
--- NOTE | 2023-03-29 09:07 | ERPHSYRPT ---
- History of Present Illness Time Seen by Provider: 03/29/23 08:26 Historian: patient Exam Limitations: no limitations Patient Subjective Stated Complaint: Left sided flank pain Triage Nursing Assessment: Patient ambulated back to ED and transferred self to bed. Patient A+O X 3. Patient's skin pink, warm and dry. Patient crying in pain and states her pain is in her left flank 10/10 constant, sharp. Patient states she was woke up with pain in left flank at 0657 and has gotten worse. Patient complains of nausea and diarrhea, but denies vomiting. Abdomen soft and round with BS X 4. Physician History: Patient with left flank pain. Started around 7 AM. No falls or other trauma. No fever no chills. Some nausea without vomiting. Patient unable to make urine. Recently got off her period. However, have not confirmed that she is not . Allergies/Adverse Reactions: omeprazole Adverse Reaction (Intermediate, Verified 03/29/23 08:43) Muscle Aches "makes my body shake" Hx Tetanus, Diphtheria Vaccination/Date Given: Yes Hx Influenza Vaccination/Date Given: Yes Hx Pneumococcal Vaccination/Date Given: No Travel Risk - International Travel Have you traveled outside of the country in past 3 weeks: No - Coronavirus Screening Are you exhibiting any of the following symptoms?: No Close contact with a COVID-19 positive Pt in past 14-21 Days: No - Vaccine Status Have you recieved a Covid-19 vaccination: Yes [employer]: Moderna - Vaccination Dates Date of 2cond Vaccination (if applicable): 02/11/21 - Review of Systems Constitutional: No Fever, No Chills Eyes: No Symptoms Ears, Nose, & Throat: No Symptoms Respiratory: No Cough, No Dyspnea Cardiac: No Chest Pain, No Edema, No Syncope Abdominal/Gastrointestinal: Abdominal Pain (left flank pain), No Nausea, No Vomiting, No Diarrhea Genitourinary Symptoms: No Dysuria Musculoskeletal: No Back Pain, No Neck Pain Skin: No Rash Neurological: No Dizziness, No Focal Weakness, No Sensory Changes Psychological: No Symptoms Endocrine: No Symptoms All Other Systems: Reviewed and Negative - Past Medical History Pertinent Past Medical History: Yes Neurological History: No Pertinent History ENT History: No Pertinent History Cardiac History: No Pertinent History Respiratory History: Asthma Endocrine Medical History: Hypothyroidism Musculoskeletal History: Osteoarthritis GI Medical History: No Pertinent History History: No Pertinent History Psycho-Social History: Anxiety, Depression, Other Female Reproductive Disorders: No Pertinent History Other Medical History: Pt notes problems with thyroid, unsure if hypo- or hyper- - Past Surgical History Past Surgical History: Yes Neuro Surgical History: No Pertinent History Cardiac: No Pertinent History Respiratory: No Pertinent History Gastrointestinal: No Pertinent History Genitourinary: No Pertinent History Musculoskeletal: Other Female Surgical History: No Pertinent History Other Surgical History: cyst removed from between shoulder blades - Social History Smoking Status: Current every day smoker How long have you smoked: years Exposure to second hand smoke: Yes Drug Use: none Patient Lives Alone: No Significant Family History: no pertinent family hx - Female History Hx Last Menstrual Period: Last week Hx Now: No - Nursing Vital Signs Nursing Vital Signs: Initial Vital Signs Temperature 97.8 F 03/29/23 08:44 Pulse Rate 100 H 03/29/23 08:44 Respiratory Rate 18 03/29/23 08:44 Blood Pressure 152/123 03/29/23 08:44 O2 Sat by Pulse Oximetry 99 03/29/23 08:44 Pain Scale Pain Intensity 4 - Physical Exam General Appearance: no apparent distress, alert Eye Exam: PERRL/EOMI, eyes nml inspection Ears, Nose, Throat Exam: normal ENT inspection, pharynx normal, moist mucous membranes Neck Exam: normal inspection, non-tender, supple, full range of motion Respiratory Exam: normal breath sounds, lungs clear, No respiratory distress Cardiovascular Exam: regular rate/rhythm, normal heart sounds Gastrointestinal/Abdomen Exam: soft, other (Flank tenderness to palpation), No tenderness, No mass Back Exam: normal inspection, normal range of motion, No CVA tenderness, No vertebral tenderness Extremity Exam: normal inspection, normal range of motion, pelvis stable Neurologic Exam: alert, oriented x 3, cooperative, normal mood/affect, nml cerebellar function, sensation nml, No motor deficits Skin Exam: normal color, warm, dry SpO2: 99 - Course Nursing assessment & vital signs reviewed: Yes Ordered Tests: Active Orders 24 hr Category Date Time Status IV Insertion STAT Care 03/29/23 08:46 Completed NPO (ED) STAT Care 03/29/23 08:46 Completed ABDOMEN AND PELVIS W&WO CONTRA [CT] Stat Exams 03/29/23 08:47 Completed CHEST 1 VIEW (PORTABLE) Stat Exams 03/29/23 08:46 Completed CBC W DIFF Stat Lab 03/29/23 08:55 Completed CMP Stat Lab 03/29/23 08:55 Completed CULTURE,URINE Stat Lab 03/29/23 10:03 Received HCG QUALITATIVE, SERUM Stat Lab 03/29/23 08:55 Completed LIPASE Stat Lab 03/29/23 08:55 Completed UA W/RFX UR CULTURE Stat Lab 03/29/23 10:03 Completed Medication Summary Discontinued Medications Generic Name Dose Route Start Last Admin Trade Name Freq PRN Reason Stop Dose Admin Hydromorphone HCl 1 mg 03/29/23 08:46 03/29/23 08:55 Hydromorphone 1 Mg/1ml Inj IV 03/29/23 08:47 1 mg STAT ONE Administration Hydromorphone HCl Confirm 03/29/23 08:51 Hydromorphone 1 Mg/1ml Inj Administered 03/29/23 08:52 Dose 1 mg .ROUTE .STK-MED ONE Sodium Chloride 1,000 mls @ 999 mls/hr 03/29/23 08:46 03/29/23 10:04 Sodium Chloride 0.9% 1000 Ml IV 03/29/23 09:46 Infused .Q1H1M STA Infusion Sodium Chloride Confirm 03/29/23 08:51 Sodium Chloride 0.9% 1000 Ml Administered 03/29/23 08:52 Dose 1,000 mls @ ud .ROUTE .STK-MED ONE Ketorolac Tromethamine 30 mg 03/29/23 08:46 03/29/23 09:20 Ketorolac Tromethamine 30 Mg/Ml Inj IV 03/29/23 08:47 30 mg STAT ONE Administration Ketorolac Tromethamine Confirm 03/29/23 09:20 Ketorolac Tromethamine 30 Mg/Ml Inj Administered 03/29/23 09:21 Dose 30 mg .ROUTE .STK-MED ONE Ondansetron HCl 4 mg 03/29/23 08:46 03/29/23 08:52 Ondansetron Hcl 4 Mg/2 Ml Vial IV 03/29/23 08:47 4 mg STAT ONE Administration Ondansetron HCl Confirm 03/29/23 08:51 Ondansetron Hcl 4 Mg/2 Ml Vial Administered 03/29/23 08:52 Dose 4 mg .ROUTE .STK-MED ONE Lab/Rad Data: Laboratory Result Diagrams 03/29/23 08:55 03/29/23 08:55 Laboratory Results 03/29/23 03/29/23 03/29/23 Range/Units 10:03 08:55 08:55 WBC (4.0-10.5) x10^3/uL RBC (4.1-5.4) x10^6/uL Hgb (12.0-16.0) g/dL Hct (35-47) % MCV (78-100) fL MCH (26-32) pg MCHC (32-36) g/dL RDW (11.5-14.0) % Plt Count (150-450) x10^3/uL MPV (7.5-11.0) fL Gran % (36.0-66.0) % Immature Gran % (Auto) (0.00-0.4) % Nucleat RBC Rel Count (0.00-0.1) % Eos # (Auto) (0-0.5) x10^3/uL Immature Gran # (Auto) (0.00-0.03) x10^3u/L Absolute Lymphs (auto) (1.0-4.6) x10^3/uL Absolute Monos (auto) (0.0-1.3) x10^3/uL Absolute Nucleated RBC (0.00-0.01) x10^3u/L Lymphocytes % (24.0-44.0) % Monocytes % (0.0-12.0) % Eosinophils % (0.00-5.0) % Basophils % (0.0-0.4) % Absolute Granulocytes (1.4-6.9) x10^3/uL Basophils # (0-0.4) x10^3/uL Sodium 143 (137-145) mmol/L Potassium 3.8 (3.5-5.1) mmol/L Chloride 107 (98-107) mmol/L Carbon Dioxide 27 (22-30) mmol/L Anion Gap 12.3 (5-15) MEQ/L BUN 10 (7-17) mg/dL Creatinine 0.86 (0.52-1.04) mg/dL Estimated GFR > 60.0 ML/MIN Glucose 105 (74-106) mg/dL Calcium 8.5 (8.4-10.2) mg/dL Total Bilirubin 0.50 (0.2-1.3) mg/dL AST 18 (14-36) U/L ALT 18 (0-35) U/L Alkaline Phosphatase 84 (38-126) U/L Serum Total Protein 7.1 (6.3-8.2) g/dL Albumin 3.8 (3.5-5.0) g/dL Lipase 29 (23-300) U/L Serum HCG, Qual NEGATIVE (NEGATIVE) Urine Color Red A (Yellow) Urine Appearance Cloudy A (Clear) Urine pH 5.5 (4.6-8.0) Ur Specific [place] 1.020 (1.005-1.030) Urine Protein 100 A (Negative) Urine Glucose (UA) Negative (Negative) mg/dL Urine Ketones Negative (Negative) Urine Blood Large A (Negative) Urine Nitrite Negative (Negative) Urine Bilirubin Small A (Negative) Urine Urobilinogen 0.2 (0.2) mg/dL Ur Leukocyte Esterase Small A (Negative) U Hyaline Cast (Auto) 6-10 A (0-2) /LPF Urine Microscopic RBC >100 A (0-5) /HPF Urine Microscopic WBC 11-20 A (0-5) /HPF Ur Epithelial Cells Few (None Seen) /HPF Urine Bacteria Few A (None Seen) /HPF Urine Culture Reflexed ORDERED SEPARATELY (NO) 03/29/23 Range/Units 08:55 WBC 12.4 H (4.0-10.5) x10^3/uL RBC 4.68 (4.1-5.4) x10^6/uL Hgb 13.2 (12.0-16.0) g/dL Hct 41.8 (35-47) % MCV 89.3 (78-100) fL MCH 28.2 (26-32) pg MCHC 31.6 L (32-36) g/dL RDW 14.4 H (11.5-14.0) % Plt Count 312 (150-450) x10^3/uL MPV 9.8 (7.5-11.0) fL Gran % 62.6 (36.0-66.0) % Immature Gran % (Auto) 0.5 H (0.00-0.4) % Nucleat RBC Rel Count 0.0 (0.00-0.1) % Eos # (Auto) 0.43 (0-0.5) x10^3/uL Immature Gran # (Auto) 0.06 H (0.00-0.03) x10^3u/L Absolute Lymphs (auto) 3.25 (1.0-4.6) x10^3/uL Absolute Monos (auto) 0.85 (0.0-1.3) x10^3/uL Absolute Nucleated RBC 0.00 (0.00-0.01) x10^3u/L Lymphocytes % 26.3 (24.0-44.0) % Monocytes % 6.9 (0.0-12.0) % Eosinophils % 3.5 (0.00-5.0) % Basophils % 0.2 (0.0-0.4) % Absolute Granulocytes 7.76 H (1.4-6.9) x10^3/uL Basophils # 0.03 (0-0.4) x10^3/uL Sodium (137-145) mmol/L Potassium (3.5-5.1) mmol/L Chloride (98-107) mmol/L Carbon Dioxide (22-30) mmol/L Anion Gap (5-15) MEQ/L BUN (7-17) mg/dL Creatinine (0.52-1.04) mg/dL Estimated GFR ML/MIN Glucose (74-106) mg/dL Calcium (8.4-10.2) mg/dL Total Bilirubin (0.2-1.3) mg/dL AST (14-36) U/L ALT (0-35) U/L Alkaline Phosphatase (38-126) U/L Serum Total Protein (6.3-8.2) g/dL Albumin (3.5-5.0) g/dL Lipase (23-300) U/L Serum HCG, Qual (NEGATIVE) Urine Color (Yellow) Urine Appearance (Clear) Urine pH (4.6-8.0) Ur Specific [place] (1.005-1.030) Urine Protein (Negative) Urine Glucose (UA) (Negative) mg/dL Urine Ketones (Negative) Urine Blood (Negative) Urine Nitrite (Negative) Urine Bilirubin (Negative) Urine Urobilinogen (0.2) mg/dL Ur Leukocyte Esterase (Negative) U Hyaline Cast (Auto) (0-2) /LPF Urine Microscopic RBC (0-5) /HPF Urine Microscopic WBC (0-5) /HPF Ur Epithelial Cells (None Seen) /HPF Urine Bacteria (None Seen) /HPF Urine Culture Reflexed (NO) - Progress Progress: improved Progress Note: 03/29/23 09:07 differential diagnosis includes kidney stone, compression fracture, infection, UTI, triple AAA - basic labs including: CBC, lipase, CMP, UA, urine test - insert IV for fluids, pain meds, nausea control - consider imaging: CT ab/pelvis or U/S 03/29/23 11:23 CT scan shows 3 mm left-sided kidney stone. I do not believe the patient has an infected stone. No fever here. Patient's does have slightly elevated leukocytosis however most likely from pain and nausea. Urine shows leukocytes, no nitrites, some blood. Minimal bacteria with epithelial cells. Most likely contaminant given this was not a urine catheterization. We will still send for culture and treat appropriately should this be an infected stone. However patient looks much improved no documented fevers, I do believe patient safe to go home at this point in time. We did give patient close follow-up with urology. Also they may see their PCP. Return here sooner for new or changing symptoms. Counseled pt/family regarding: lab results, diagnosis, need for follow-up, rad results - Departure Departure Disposition: Home Clinical Impression: Kidney stone on left side Condition: Stable Critical Care Time: No Referrals: MEEK THOMPSON MD [Primary Care Provider] - Follow up/PCP as directed DELFINA CARDOZA [COURTESY STAFF] - Follow up/PCP as directed Instructions: Kidney Stones (DC), Flank Pain Additional Instructions: See urology or PCP for follow-up of kidney stone. Return here sooner should you develop any fevers, worsening pain, nausea or vomiting. Prescriptions: Ondansetron ODT 4 MG [Zofran Odt 4 mg] 4 mg PO Q6H PRN PRN #10 tablet PRN Reason: Vomiting Ketorolac Trometh 10 mg Tab [TORAdol 10 MG TABLET] 10 mg PO TID PRN 5 Days #12 tablet
[2023-03-29 09:14] LABS: HCG SERUM TEST NEGATIVE (NEGATIVE)
[2023-03-29 09:15] LABS: ALBUMIN 3.8 g/dL (3.5-5.0); ALKALINE PHOSPHATASE 84 U/L (38-126); ANION GAP 12.3 MEQ/L (5-15); BLOOD UREA NITROGEN 10 mg/dL (7-17); CHLORIDE 107 mmol/L (98-107); Calcium 8.5 mg/dL (8.4-10.2); Carbon Dioxide 27 mmol/L (22-30); Creatinine 1 0.86 mg/dL (0.52-1.04); EST GLOMERULAR FILTRATION RATE > 60.0 ML/MIN; Glucose 105 mg/dL (74-106); LIPASE 29 U/L (23-300); Potassium 3.8 mmol/L (3.5-5.1); SGOT/AST 18 U/L (14-36); SGPT/ALT 18 U/L (0-35); SODIUM 143 mmol/L (137-145); Total Protein 7.1 g/dL (6.3-8.2)
[2023-03-29] MEDS ORDERED: TORAdol 30 mg Injection ONE (09:20)
[2023-03-29 10:04] VITALS: BP 142/96; PULSE 80
--- NOTE | 2023-03-29 10:07 | XRAY ---
Indication: Left flank pain. Comparison: None Portable apical lordotic chest demonstrates normal heart, lungs, and bony thorax with a few incidental tiny calcified granulomas.
--- NOTE | 2023-03-29 10:37 | XRAY ---
Indication: Flank pain. Multiple contiguous axial images obtained through the abdomen and pelvis prior to and following 80 cc Isovue 370 contrast as ordered. Comparison: None Lung bases demonstrates tiny calcified pulmonary and chunky right infrahilar calcified granulomas. Heart is not enlarged. Noncontrasted images demonstrates 3 mm proximal left ureter calculus, approximately L3 level. Minimal hydronephrosis favoring partial obstructive uropathy. No free fluid/air. No other pathologic visceral calcifications/calculi. Noncontrasted stomach and bowels appear nonobstructed with normal appendix. Postcontrast images demonstrate normal visceral enhancement and renal excretion. Incidental tampon in situ. Remaining liver, gallbladder, pancreas, spleen, adrenal glands, kidneys, ureters, bladder, uterus, and aorta are unremarkable. No pathologic retroperitoneal lymphadenopathy. Osseous structures intact. Impression: 1. 3 mm proximal left ureter calculus producing minimal obstructive uropathy. 2. Incidental old granulomatous disease. 3. Remaining CT abdomen/pelvis with and without contrast exam is negative.
[2023-03-29 10:46] LABS: Appearance Cloudy (Clear); Bilirubin Small (Negative); Blood Large (Negative); Glucose, Urine Negative (Negative); Ketones Negative (Negative); Leukocyte Esterase Small (Negative); Nitrite Negative (Negative); Ph 5.5 (4.6-8.0); Protein,Urine Dip 100 (Negative); RBC >100 /HPF (0-5); Urobilinogen 0.2 mg/dL (0.2)
[2023-03-29 10:49] LABS: ADD URINE CULTURE? ORDERED SEPARATELY (NO); Bacteria Few /HPF (None Seen); Epithelial Cells Few /HPF (None Seen)
[2023-03-29 11:02] VITALS: O2SAT 99
== END 2023-03-29 11:11 | disposition home or self-care (01) ==
LOC: ED 08:14
DX: N20.0 Calculus of kidney (principal); R10.9 Unspecified abdominal pain; R11.0 Nausea; Z72.0 Tobacco use
CPT/HCPCS: 36000; 36415; 71045; 74178; 80053; 81001; 83690; 84703; 85025; 87086; 96360; 96374; 96375; 99284; J1170; J1885; J2405

== ENCOUNTER 2023-04-10 06:17 | Emergency (ER) | payer OTHER ==
--- NOTE | 2023-04-10 07:29 | ERPHSYRPT ---
- History of Present Illness Time Seen by Provider: 04/10/23 07:28 Historian: patient Exam Limitations: no limitations Physician History: This is a morbidly obese 37-year-old white female who is a patient of Dr. Thompson and was seen in this emergency department on 03/29/2023 for left flank pain. She was found to have a 3 mm left kidney stone and a significant urinary tract infection. Patient did not complete her entire Cipro antibiotic therapy per her report. Yesterday, she started having left flank pain again that was severe. Patient has a history of asthma, hypothyroidism, anxiety and depression. Patient is a daily smoker of cigarettes. She denies chest pain and she denies shortness of breath. Timing/Duration: yesterday Activities at Onset: none Quality: sharpness, stabbing Abdominal Pain Onset Location: flank (Left) Pain Radiation: no radiation Severity of Pain-Max: moderate Severity of Pain-Current: moderate Modifying Factors: Improves With: nothing Associated Symptoms: nausea Previous symptoms: same symptoms as today, recently treated, no recent treatment Allergies/Adverse Reactions: omeprazole Adverse Reaction (Intermediate, Verified 04/10/23 07:36) Muscle Aches "makes my body shake" Home Medications: Cholecalciferol (Vitamin D3) [Vitamin D] 50,000 unit PO WEEKLY 04/10/23 [History] Levothyroxine Sodium 25 mcg PO DAILY 04/10/23 [History] Hx Tetanus, Diphtheria Vaccination/Date Given: Yes Hx Influenza Vaccination/Date Given: Yes Hx Pneumococcal Vaccination/Date Given: No Travel Risk - International Travel Have you traveled outside of the country in past 3 weeks: No - Coronavirus Screening Are you exhibiting any of the following symptoms?: No Close contact with a COVID-19 positive Pt in past 14-21 Days: No - Vaccine Status Have you recieved a Covid-19 vaccination: Yes 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 - Vaccination Dates Date of 2cond Vaccination (if applicable): 02/11/21 - Review of Systems Constitutional: No Symptoms Eyes: No Symptoms Ears, Nose, & Throat: No Symptoms Respiratory: No Symptoms, Wheezing Abdominal/Gastrointestinal: Nausea, No Abdominal Pain, No Vomiting, No Diarrhea, No Constipation Genitourinary Symptoms: Flank Pain (Left) Musculoskeletal: No Symptoms Skin: No Symptoms Neurological: No Symptoms Psychological: No Symptoms Endocrine: No Symptoms Hematologic/Lymphatic: No Symptoms Immunological/Allergic: No Symptoms All Other Systems: Reviewed and Negative - Past Medical History Pertinent Past Medical History: Yes Neurological History: No Pertinent History ENT History: No Pertinent History Cardiac History: No Pertinent History Respiratory History: Asthma Endocrine Medical History: Hypothyroidism Musculoskeletal History: Osteoarthritis GI Medical History: No Pertinent History History: No Pertinent History Psycho-Social History: Anxiety, Depression, Other Female Reproductive Disorders: No Pertinent History Other Medical History: Pt notes problems with thyroid, unsure if hypo- or hyper- - Past Surgical History Past Surgical History: Yes Neuro Surgical History: No Pertinent History Cardiac: No Pertinent History Respiratory: No Pertinent History Gastrointestinal: No Pertinent History Genitourinary: No Pertinent History Musculoskeletal: Other Female Surgical History: No Pertinent History Other Surgical History: cyst removed from between shoulder blades - Social History Smoking Status: Current every day smoker How long have you smoked: years Exposure to second hand smoke: Yes Drug Use: none Patient Lives Alone: No Significant Family History: no pertinent family hx - Nursing Vital Signs Nursing Vital Signs: Initial Vital Signs Temperature 97.6 F 04/10/23 07:22 Pulse Rate 74 04/10/23 07:22 Blood Pressure 138/98 04/10/23 07:22 O2 Sat by Pulse Oximetry 97 04/10/23 07:22 Pain Scale Pain Intensity 9 - Physical Exam General Appearance: no apparent distress, alert, anxiety, obese Eye Exam: PERRL/EOMI, eyes nml inspection Ears, Nose, Throat Exam: normal ENT inspection, moist mucous membranes Neck Exam: normal inspection, non-tender, supple, full range of motion Respiratory Exam: normal breath sounds, lungs clear, airway intact, No chest tenderness, No respiratory distress Cardiovascular Exam: regular rate/rhythm, normal heart sounds, normal peripheral pulses Gastrointestinal/Abdomen Exam: soft, normal bowel sounds, other (Left flank pain), No tenderness, No guarding Pelvic Exam: not done Rectal Exam: not done Back Exam: normal inspection, normal range of motion, CVA tenderness, vertebral tenderness Extremity Exam: normal inspection, normal range of motion, pelvis stable Neurologic Exam: alert, oriented x 3, cooperative, manager title II-XII nml as tested, normal mood/affect, nml cerebellar function, nml station & gait, sensation nml Skin Exam: normal color, warm, dry Lymphatic Exam: No adenopathy SpO2 Interpretation: normal O2 Delivery: Room Air - Course Nursing assessment & vital signs reviewed: Yes Ordered Tests: Active Orders 24 hr Category Date Time Status IV Insertion STAT Care 04/10/23 07:52 Active ABDOMEN AND PELVIS W/0 CONTRAS [CT] Stat Exams 04/10/23 07:53 Completed AMYLASE Stat Lab 04/10/23 08:10 Completed CBC W DIFF Stat Lab 04/10/23 08:10 Completed CMP Stat Lab 04/10/23 08:10 Completed CULTURE,URINE Stat Lab 04/10/23 08:19 Received LIPASE Stat Lab 04/10/23 08:10 Completed UA W/RFX UR CULTURE Stat Lab 04/10/23 08:19 Completed Medication Summary Generic Name Dose Route Start Last Admin Trade Name Freq PRN Reason Stop Dose Admin Ceftriaxone Sodium/Dextrose 1 g in 50 mls @ 100 mls/hr 04/10/23 09:36 Rocephin 1 Gm-D5w 50 Ml Bag IV 04/10/23 10:05 STAT STA Discontinued Medications Generic Name Dose Route Start Last Admin Trade Name Freq PRN Reason Stop Dose Admin Hydromorphone HCl 1 mg 04/10/23 07:52 04/10/23 08:25 Hydromorphone 1 Mg/1ml Inj IV 04/10/23 07:53 1 mg STAT ONE Administration Hydromorphone HCl Confirm 04/10/23 08:23 Hydromorphone 1 Mg/1ml Inj Administered 04/10/23 08:24 Dose 1 mg .ROUTE .STK-MED ONE Sodium Chloride 1,000 mls @ 999 mls/hr 04/10/23 07:52 04/10/23 09:27 Sodium Chloride 0.9% 1000 Ml IV 04/10/23 08:52 Infused .Q1H1M STA Infusion Sodium Chloride Confirm 04/10/23 08:23 Sodium Chloride 0.9% 1000 Ml Administered 04/10/23 08:24 Dose 1,000 mls @ ud .ROUTE .STK-MED ONE Ketorolac Tromethamine 30 mg 04/10/23 07:52 04/10/23 08:25 Ketorolac Tromethamine 30 Mg/Ml Inj IV 04/10/23 07:53 30 mg STAT ONE Administration Ketorolac Tromethamine Confirm 04/10/23 08:22 Ketorolac Tromethamine 30 Mg/Ml Inj Administered 04/10/23 08:23 Dose 30 mg .ROUTE .STK-MED ONE Ondansetron HCl 4 mg 04/10/23 07:52 04/10/23 08:25 Ondansetron Hcl 4 Mg/2 Ml Vial IV 04/10/23 07:53 4 mg STAT ONE Administration Ondansetron HCl Confirm 04/10/23 08:22 Ondansetron Hcl 4 Mg/2 Ml Vial Administered 04/10/23 08:23 Dose 4 mg .ROUTE .STK-MED ONE Tamsulosin HCl 0.4 mg 04/10/23 09:36 Tamsulosin Hcl 0.4 Mg Cap PO 04/10/23 09:37 STAT ONE Lab/Rad Data: Laboratory Result Diagrams 04/10/23 08:10 04/10/23 08:10 Laboratory Results 04/10/23 04/10/23 04/10/23 Range/Units 08:19 08:10 08:10 WBC 9.9 (4.0-10.5) x10^3/uL RBC 4.41 (4.1-5.4) x10^6/uL Hgb 12.6 (12.0-16.0) g/dL Hct 38.8 (35-47) % MCV 88.0 (78-100) fL MCH 28.6 (26-32) pg MCHC 32.5 (32-36) g/dL RDW 14.7 H (11.5-14.0) % Plt Count 271 (150-450) x10^3/uL MPV 10.0 (7.5-11.0) fL Gran % 63.5 (36.0-66.0) % Immature Gran % (Auto) 0.5 H (0.00-0.4) % Nucleat RBC Rel Count 0.0 (0.00-0.1) % Eos # (Auto) 0.39 (0-0.5) x10^3/uL Immature Gran # (Auto) 0.05 H (0.00-0.03) x10^3u/L Absolute Lymphs (auto) 2.40 (1.0-4.6) x10^3/uL Absolute Monos (auto) 0.73 (0.0-1.3) x10^3/uL Absolute Nucleated RBC 0.00 (0.00-0.01) x10^3u/L Lymphocytes % 24.3 (24.0-44.0) % Monocytes % 7.4 (0.0-12.0) % Eosinophils % 3.9 (0.00-5.0) % Basophils % 0.4 (0.0-0.4) % Absolute Granulocytes 6.28 (1.4-6.9) x10^3/uL Basophils # 0.04 (0-0.4) x10^3/uL Sodium 139 (137-145) mmol/L Potassium 3.9 (3.5-5.1) mmol/L Chloride 107 (98-107) mmol/L Carbon Dioxide 25 (22-30) mmol/L Anion Gap 10.3 (5-15) MEQ/L BUN 13 (7-17) mg/dL Creatinine 0.94 (0.52-1.04) mg/dL Estimated GFR > 60.0 ML/MIN Glucose 111 H (74-106) mg/dL Calcium 8.6 (8.4-10.2) mg/dL Total Bilirubin 0.50 (0.2-1.3) mg/dL AST 21 (14-36) U/L ALT 22 (0-35) U/L Alkaline Phosphatase 93 (38-126) U/L Serum Total Protein 7.1 (6.3-8.2) g/dL Albumin 3.7 (3.5-5.0) g/dL Amylase 37 (30-110) U/L Lipase 24 (23-300) U/L Urine Color Dark Yellow A (Yellow) Urine Appearance Turbid A (Clear) Urine pH 5.5 (4.6-8.0) Ur Specific [place] >=1.030 A (1.005-1.030) Urine Protein 30 (Negative) Urine Glucose (UA) Negative (Negative) mg/dL Urine Ketones Trace A (Negative) Urine Blood Large A (Negative) Urine Nitrite Negative (Negative) Urine Bilirubin Small A (Negative) Urine Urobilinogen 1.0 A (0.2) mg/dL Ur Leukocyte Esterase Trace A (Negative) U Hyaline Cast (Auto) NONE SEEN (0-2) /LPF Urine Microscopic RBC >100 A (0-5) /HPF Urine Microscopic WBC 3-5 (0-5) /HPF Ur Epithelial Cells Many A (None Seen) /HPF Urine Bacteria Moderate A (None Seen) /HPF Urine Culture Reflexed YES (NO) - Progress Progress: improved, pain not gone completely, re-examined Progress Note: 04/10/23 09:33 CT scan of the abdomen pelvis without contrast shows a 3 to 4 mm ureteral stone at the UVJ. There is minimal left ureteral prominence. There is mild hydronephrosis which is consistent with partial obstructive uropathy. This patient's medical issue is 1 of moderate complexity. Level of complexity and the work-up performed based on review of the patient's past medical history, review of the patient's past radiographic studies, review of the patient's medication list, review of the patient's drug allergy list, history of present illness and physical findings on examination. Work-up includes placement of intravenous line, infusion of 1 L of normal saline solution, infusion of Toradol 30 mg intravenously, infusion of Zofran 4 mg intravenously, infusion of Dilaudid 1 mg intravenously, CBC, CMP, urinalysis, amylase, lipase. I reviewed the above-stated results. The patient does have a left ureteral stone with mild partial obstructive uropathy findings. We will add Flomax to today's drug regimen. If the patient's urinalysis shows urinary tract infection we will supply her with a dose of intravenous Rocephin and change her antibiotic from Cipro to Bactrim DS as an outpatient. Counseled pt/family regarding: lab results, diagnosis, need for follow-up, rad results Medical Desision Making - Independent Historian Additional History obtained from: Spouse - Diagnostic Testing Diagnostic test were ordered, analyzed, and reviewed by me: Yes Radiological Interpretation: Reviewed by me, Teleradiologist Report - Risk of complications The pt has a mod risk of morbidity or mortality based on: Need for prescription drug management - Departure Departure Disposition: Home Clinical Impression: Left ureteral calculus, UTI (urinary tract infection) Condition: Stable Critical Care Time: No Referrals: MEEK THOMPSON MD [Primary Care Provider] - Follow up/PCP as directed Additional Instructions: Drink plenty of fluids. Use ibuprofen 600 mg orally with food 3 times daily for 5 days. take other medications as prescribed. follow up with urology for per sistent symptoms Prescriptions: Hydrocodone/APAP 5/325 [[place] 5/325 mg] 1 each PO Q8H PRN PRN #6 tablet MDD 3 PRN Reason: Pain Smz/Tmp Ds Tablet [Bactrim Ds Tablet] 1 udtab PO BID #14 tablet Tamsulosin HCl 0.4 mg [Flomax 0.4 MG] 0.4 mg PO DAILY #7 cap
[2023-04-10] MEDS ORDERED: Sodium Chloride 0.9% 1000 ML 1,000 ML IV STA (07:52)
[2023-04-10] MEDS ORDERED: TORAdol 30 mg Injection IV ONE (07:52)
[2023-04-10] MEDS ORDERED: Hydromorphone 1 mg/ml Injection IV ONE (07:52)
[2023-04-10] MEDS ORDERED: Zofran 4 MG/2 ML VIAL IV ONE (07:52)
[2023-04-10 08:14] LABS: Absolute Neutrophil Ct (ANC) 6.28 x10^3/uL (1.4-6.9); BASOPHIL % 0.4 % (0.0-0.4); Basophil (Absolute #) 0.04 x10^3/uL (0-0.4); Eosinophil % 3.9 % (0.00-5.0); Eosinophil (Absolute #) 0.39 x10^3/uL (0-0.5); Hematocrit 38.8 % (35-47); Hemoglobin 12.6 g/dL (12.0-16.0); IMMATURE GRAN # 0.05 x10^3u/L (0.00-0.03); IMMATURE GRAN % 0.5 % (0.00-0.4); Lymphocytes % 24.3 % (24.0-44.0); Mean Corpuscular Hemoglobin 28.6 pg (26-32); Mean Corpuscular Hgb Concent. 32.5 g/dL (32-36); Monocyte (Absolute #) 0.73 x10^3/uL (0.0-1.3); Monocytes % 7.4 % (0.0-12.0); Neutrophil % 63.5 % (36.0-66.0); Platelet Count 271 x10^3/uL (150-450); Red Blood Count 4.41 x10^6/uL (4.1-5.4); Red Cell Distribution Width 14.7 % (11.5-14.0); White Blood Count 9.9 x10^3/uL (4.0-10.5)
[2023-04-10 08:21] VITALS: PULSE 65
[2023-04-10] MEDS ORDERED: Zofran 4 MG/2 ML VIAL ONE (08:22)
[2023-04-10] MEDS ORDERED: TORAdol 30 mg Injection ONE (08:22)
[2023-04-10] MEDS ORDERED: Hydromorphone 1 mg/ml Injection ONE (08:23)
[2023-04-10] MEDS ORDERED: Sodium Chloride 0.9% 1000 ML 1,000 ML ONE (08:23)
[2023-04-10 08:31] LABS: ALBUMIN 3.7 g/dL (3.5-5.0); ALKALINE PHOSPHATASE 93 U/L (38-126); AMYLASE 37 U/L (30-110); ANION GAP 10.3 MEQ/L (5-15); BLOOD UREA NITROGEN 13 mg/dL (7-17); CHLORIDE 107 mmol/L (98-107); Calcium 8.6 mg/dL (8.4-10.2); Carbon Dioxide 25 mmol/L (22-30); Creatinine 1 0.94 mg/dL (0.52-1.04); EST GLOMERULAR FILTRATION RATE > 60.0 ML/MIN; Glucose 111 mg/dL (74-106); LIPASE 24 U/L (23-300); Potassium 3.9 mmol/L (3.5-5.1); SGOT/AST 21 U/L (14-36); SGPT/ALT 22 U/L (0-35); SODIUM 139 mmol/L (137-145); Total Protein 7.1 g/dL (6.3-8.2)
--- NOTE | 2023-04-10 09:08 | XRAY ---
Indication: Left flank pain. Known left kidney stone. Multiple contiguous axial images obtained through the abdomen and pelvis without contrast. Comparison: March 29, 2023. Lung bases again demonstrates tiny calcified pulmonary and chunky right infrahilar calcified granulomas. Heart not enlarged. Noncontrasted stomach and bowel loops nonobstructed again with normal appendix. Previous 3-4 mm proximal left ureter calculus now seen at the level of the UVJ. Proximal left ureter minimally prominent up to 7 mm along with stable mild hydronephrosis consistent with partial obstructive uropathy. No free fluid/air. Remaining liver, gallbladder, pancreas, spleen, adrenal glands, kidneys, ureters, bladder, uterus, and aorta are unremarkable for noncontrast exam. Impression: 3-4 mm calculus now seen at UVJ again producing partial obstructive uropathy.
[2023-04-10 09:21] LABS: ADD URINE CULTURE? YES (NO); Appearance Turbid (Clear); Bacteria Moderate /HPF (None Seen); Bilirubin Small (Negative); Blood Large (Negative); Epithelial Cells Many /HPF (None Seen); Glucose, Urine Negative (Negative); Hyaline Casts NONE SEEN /LPF (0-2); Ketones Trace (Negative); Leukocyte Esterase Trace (Negative); Nitrite Negative (Negative); Ph 5.5 (4.6-8.0); Protein,Urine Dip 30 (Negative); RBC >100 /HPF (0-5); Specific Gravity >=1.030 (1.005-1.030)
[2023-04-10] MEDS ORDERED: Flomax 0.4 MG PO ONE (09:36)
[2023-04-10] MEDS ORDERED: ROCEPHIN 1 Gm-D5w 50 ml Bag** 1 G/50 ML IVPB IV STA (09:36)
[2023-04-10] MEDS ORDERED: Flomax 0.4 MG ONE (09:57)
[2023-04-10] MEDS ORDERED: ROCEPHIN 1 Gm-D5w 50 ml Bag** 1 G/50 ML IVPB IV ONE (09:58)
[2023-04-10 10:04] VITALS: O2SAT 93
[2023-04-10 10:17] VITALS: BP 151/98
== END 2023-04-10 10:22 | disposition home or self-care (01) ==
LOC: ED 06:17
DX: N13.2 Hydronephrosis with renal and ureteral calculous obstruction (principal); N39.0 Urinary tract infection, site not specified; R10.9 Unspecified abdominal pain; Z79.891 Long term (current) use of opiate analgesic; Z79.899 Other long term (current) drug therapy; Z72.0 Tobacco use
CPT/HCPCS: 36000; 36415; 74176; 80053; 81001; 82150; 83690; 85025; 87086; 96360; 96365; 96374; 96375; 99284; J0696; J1170; J1885; J2405; A9270-GY

== ENCOUNTER 2025-02-11 22:32 | Emergency (ER) | payer OTHER ==
[2025-02-11 22:52] VITALS: TEMP 97.3
[2025-02-12 00:18] VITALS: BP 166/103; PULSE 70; RESP 17
[2025-02-12] MEDS ORDERED: Augmentin 875-125 Tablet ONE (00:18)
[2025-02-12] MEDS ORDERED: TYLENOL 325 MG ONE (00:19)
[2025-02-12] MEDS ORDERED: TORAdol 30 mg Injection ONE (00:19)
[2025-02-12 00:20] VITALS: O2SAT 98
--- NOTE | 2025-02-12 00:20 | ERPHSYRPT ---
- History of Present Illness Time Seen by Provider: 02/12/25 00:15 Source: patient Exam Limitations: no limitations Patient Subjective Stated Complaint: pt states she was eating and began to have a toothache Triage Nursing Assessment: pt ambulated into the er; pt is axo x4; pt c/o rt lower jaw/ neck pain; pt states 10/10 pain to rt jaw and neck; mucus membranes pink and moist; skin PDW; hypertensive; no respiratory distress present Physician History: 39-year-old female presents to our ED for evaluation of dental pain. Patient states pain started acutely at her right lower jaw while she was eating tacos. Pain tends to radiate to her right jaw and neck. With mastication. No trauma no fever. Symptoms are mild to moderate in intensity. No specific worsening or improving factors. Patient otherwise feels well. She voices no other complaints or concerns at this time. Portions of this note were created with voice recognition technology. There may be grammatical, spelling, punctuation or sound alike errors Timing/Duration: today Severity: moderate Modifying Factors: Improves With: nothing Associated Symptoms: denies symptoms Allergies/Adverse Reactions: omeprazole Adverse Reaction (Intermediate, Verified 02/11/25 22:41) Muscle Aches "makes my body shake" Home Medications: Levothyroxine Sodium 50 mcg PO DAILY 04/10/23 [History] Hx Tetanus, Diphtheria Vaccination/Date Given: Yes Hx Influenza Vaccination/Date Given: Yes Hx Pneumococcal Vaccination/Date Given: No Travel Risk - International Travel Have you traveled outside of the country in past 3 weeks: No - Emerging Infectious Disease Are you exhibiting symptoms associated with any current EIDs: No - Review of Systems Constitutional: No Symptoms, No Fever, No Chills Eyes: No Symptoms Ears, Nose, & Throat: No Symptoms Respiratory: No Symptoms, No Cough, No Dyspnea Cardiac: No Symptoms, No Chest Pain, No Edema, No Syncope Abdominal/Gastrointestinal: No Symptoms, No Abdominal Pain, No Nausea, No Vomiting, No Diarrhea Genitourinary Symptoms: No Symptoms, No Dysuria Musculoskeletal: No Symptoms, No Back Pain, No Neck Pain Skin: No Symptoms, No Rash Neurological: No Symptoms, No Dizziness, No Focal Weakness, No Sensory Changes Psychological: No Symptoms Endocrine: No Symptoms Hematologic/Lymphatic: No Symptoms Immunological/Allergic: No Symptoms All Other Systems: Reviewed and Negative - Past Medical History Pertinent Past Medical History: Yes Neurological History: No Pertinent History ENT History: No Pertinent History Cardiac History: No Pertinent History Respiratory History: Asthma Endocrine Medical History: Hypothyroidism Musculoskeletal History: Osteoarthritis GI Medical History: No Pertinent History History: No Pertinent History Psycho-Social History: Anxiety, Depression, Other Female Reproductive Disorders: No Pertinent History Other Medical History: Pt notes problems with thyroid, unsure if hypo- or hyper- - Past Surgical History Past Surgical History: Yes Neuro Surgical History: No Pertinent History Cardiac: No Pertinent History Respiratory: No Pertinent History Gastrointestinal: No Pertinent History Genitourinary: No Pertinent History Musculoskeletal: Other Female Surgical History: No Pertinent History Other Surgical History: cyst removed from between shoulder blades Significant Family History: no pertinent family hx - Female History Hx Now: No - Social History Smoking Status: Current every day smoker How long have you smoked: years Exposure to second hand smoke: Yes Drug Use: none - Social Determinants of Health Will the patient participate in the screening: Yes Do you worry about a steady place to live?: No Do you have any problems with any of the following?: No known problems In the past 12 months,have you had to go without utilities?: No Transportation Issues: No Has anyone in your support network made you feel unsafe?: No Have you or anyone in your house had to go w/o enough food: No - Nursing Vital Signs Nursing Vital Signs: Initial Vital Signs Temperature 97.3 F 02/11/25 22:43 Pulse Rate 74 02/11/25 22:43 Respiratory Rate 18 02/11/25 22:43 Blood Pressure 163/99 02/11/25 22:43 O2 Sat by Pulse Oximetry 97 02/11/25 22:43 Pain Scale Pain Intensity 10 - Physical Exam General Appearance: no apparent distress, alert Eye Exam: PERRL/EOMI, eyes nml inspection Ears, Nose, Throat Exam: normal ENT inspection, moist mucous membranes, other (Some tenderness to percussion tooth #32 there is some erythema on the right posterior oropharynx.) Neck Exam: normal inspection, non-tender, supple, full range of motion Respiratory Exam: normal breath sounds, lungs clear, No respiratory distress Cardiovascular Exam: regular rate/rhythm, normal heart sounds, normal peripheral pulses Gastrointestinal/Abdomen Exam: soft, normal bowel sounds, No tenderness, No mass Back Exam: normal inspection, normal range of motion, No CVA tenderness, No vertebral tenderness Extremity Exam: normal inspection, normal range of motion, pelvis stable Neurologic Exam: alert, oriented x 3, cooperative, normal mood/affect, sensation nml, other (No visual changes), No motor deficits, No slurred speech, No aphasia Skin Exam: normal color, warm, dry, No rash Lymphatic Exam: No adenopathy SpO2 Interpretation: normal SpO2: 98 O2 Delivery: Room Air - Course Nursing assessment & vital signs reviewed: Yes Ordered Tests: Medication Summary Discontinued Medications Generic Name Dose Route Start Last Admin Trade Name Nancy PRN Reason Stop Dose Admin Acetaminophen 975 mg 02/12/25 00:14 02/12/25 00:23 Acetaminophen 325 Mg Tablet PO 02/12/25 00:15 975 mg STAT ONE Administration Acetaminophen Confirm 02/12/25 00:19 Acetaminophen 325 Mg Tablet Administered 02/12/25 00:20 Dose 975 mg .ROUTE .STK-MED ONE Amoxicillin/Clavulanate Potassium 875 mg 02/12/25 00:14 02/12/25 00:23 Amox Tr/Potassium Clavulanate 875 Mg Tablet PO 02/12/25 00:15 875 mg STAT ONE Administration Amoxicillin/Clavulanate Potassium Confirm 02/12/25 00:18 Amox Tr/Potassium Clavulanate 875 Mg Tablet Administered 02/12/25 00:19 Dose 875 mg .ROUTE .STK-MED ONE Ketorolac Tromethamine 60 mg 02/12/25 00:14 02/12/25 00:23 Ketorolac Tromethamine 30 Mg/Ml Inj IM 02/12/25 00:15 60 mg STAT ONE Administration Ketorolac Tromethamine Confirm 02/12/25 00:19 Ketorolac Tromethamine 30 Mg/Ml Inj Administered 02/12/25 00:20 Dose 60 mg .ROUTE .STK-MED ONE Lab/Rad Data: Laboratory Results 02/11/25 02/11/25 Range/Units 11:25 11:25 Influenza Type A Ag NEGATIVE (NEGATIVE) Influenza Type B Ag NEGATIVE (NEGATIVE) RSV (PCR) NEGATIVE (NEGATIVE) SARS-CoV-2 (PCR) NEGATIVE (NEGATIVE) Group A Strep Antibody NOT DETECTED (NEGATIVE) - Progress Progress: improved Progress Note: 31-year-old female presents to our ED for evaluation of right maxillary dental pain radiating to her right neck. Pain worse with mastication. Pain occurred while she was eating a taco. No trauma no fever. Patient has a patent oral airway. Patient has no neurologic complaints. Physical exam reveals some erythema of the right posterior pharynx. Rapid strep viral swabs negative. Patient received Toradol and Augmentin for pain control and treatment of dental abscess. Patient reassessed. Patient states she feels well and feels she is ready for discharge. Patient agrees to follow-up with her dentist or primary care doctor within 48 hours for reevaluation. Patient voices no other complaints or concerns at this time. Portions of this note were created with voice recognition technology. There may be grammatical, spelling, punctuation or sound alike errors Complexity of problem addressed is moderate acute complicated. No critical care time. Complexity of data reviewed and analyzed as moderate. Test ordered test reviewed results analyzed and correlated clinically with history and physical exam. Risk of complication and or risk of morbidity/mortality of patient management is moderate. Prescription for Augmentin and Toradol forwarded to patient's pharmacy. Vital stable. Time spent to discharge patient is approximately 15 minutes. Plan of care established for shared decision making. No social determinants of health present to impede follow-up. Portions of this note were created with voice recognition technology. There may be grammatical, spelling, punctuation or sound alike errors 02/12/25 00:45 Counseled pt/family regarding: diagnosis, need for follow-up - Departure Departure Disposition: Home Clinical Impression: Pain, dental, Dental abscess, Sore throat Condition: Stable Critical Care Time: No Referrals: MEEK THOMPSON MD [Primary Care Provider, [facility]] - Follow up/PCP as directed Additional Instructions: Discharge/Care Plan GIOVANNI KAUR MARK BAUGH was seen on 02/12/25 in the Emergency Room. The patient was counseled regarding Diagnosis,Lab results, Imaging studies, need for follow up and when to return to the Emergency Room. Prescriptions given: Discharge Note I have spoken with the patient and/or caregivers. I have explained the patient's condition, diagnosis and treatment plan based on the information available to me at this time. I have answered the patient's and/or caregiver's questions and addressed any concerns. The patient and/or caregivers have as good understanding of the patient's diagnosis, condition and treatment plan as can be expected at this point. The vital signs have been stable. The patient's condition is stable and appropriate for discharge from the emergency department. The patient will pursue further outpatient evaluation with the primary care physician or other designated or consulting physician as outlined in the disc harge instructions. The patient and/or caregivers are agreeable to this plan of care and follow-up instructions have been explained in detail. The patient and/or caregivers have received these instruction. The patient/and or caregivers are aware that any significant change in condition or worsening of symptoms should prompt an immediate return to this or the closest emergency department or call 911. Prescriptions: Amox Tr/Potass Clav. 875 mg [Augmentin 875-125 Tablet] 875 mg PO BID 7 Days #14 tablet Ketorolac Trometh 10 mg Tab [TORAdol 10 MG TABLET] 10 mg PO TID 5 Days #15 tablet
[2025-02-12 00:23] LABS: INFLUENZA A NEGATIVE (NEGATIVE); INFLUENZA B NEGATIVE (NEGATIVE); RESPIRATORY SYNCTIAL VIRUS NEGATIVE (NEGATIVE); SARS-CoV-2 Xpert Express NEGATIVE (NEGATIVE)
[2025-02-12] MEDS: Augmentin 875-125 Tablet PO ONE (00:23)
[2025-02-12] MEDS: TORAdol 30 mg Injection IM ONE (00:23)
[2025-02-12] MEDS: TYLENOL 325 MG PO ONE (00:23)
== END 2025-02-12 00:51 | disposition home or self-care (01) ==
LOC: ED 22:32
DX: K04.7 Periapical abscess without sinus (principal); K08.89 Other specified disorders of teeth and supporting structures; J02.9 Acute pharyngitis, unspecified; Z79.899 Other long term (current) drug therapy; Z72.0 Tobacco use
CPT/HCPCS: 0241U; 87651; 96372; 99283; J1885; A9270-GY